=== PATIENT | female | born 1980 | race Caucasian/White ===

== ENCOUNTER 2024-12-29 00:51 | Inpatient (IN) | payer OTHER, SELFPAY ==
[2024-12-29] VITALS (18 sets, daily range): BP systolic 134–175; BP diastolic 71–92; PULSE 50–108; RESP 16–22; TEMP 36.2–37.1; O2SAT 95–99; BMI 41.5
--- NOTE | 2024-12-29 | PATH_ITS ---
[facility] Accession Number: [id number] No. of containers..01 Tissue . 01 Material submitted: . gallbladder - GALLBLADDER . 01 Diagnosis: GALBLADDER, CHOLECYSTECTOMY: Cholelithiasis with chronic active cholecystitis. No evidence of neoplasm. MRV 01/10/2025 1419 Local . 01 Electronically signed: . Lino Pollock MD, PhD, Pathologist NPI- [id number] . 01 Gross description: . Received in formalin labeled with two patient identifiers and gallbladder, and consists of a 7.1 x 3.5 x 2.1 cm unopened gallbladder. The serosal surface is alvarado-purple, diffusely hyperemic with a marked amount of fibrous adhesions. There si a 0.5 x 0.3 cm clipped probe patent cystic duct which is further inked blue. There is also a 1.0 cm in greatest dimension red-alvarado encapsulated lymph node adjacent to the cystic duct. The lymph node is trisected to show a alvarado-red, homogeneous cut surface. The specimen is opened to show a diffusely thickened, white, fibrotic gallbladder wall that ranges from 0.1 to 0.6 cm in thickness. The mucosa is alvarado, coarsely granular, and diffusely effaced. No polyps or masses are appreciated. The lumen of the gallbladder is filled with brown to green sludge like material. In addition, there is a 0.9 cm in greatest dimension, green, bosselated, ovoid gallstones. Audio Experience Expert gallstones are submitted as follows: A1: Cystic duct, lymph node trisected, and licensing representative gallbladder. A2: Audio Experience Expert gallbladder. ([id number]) /LIYA 01/03/2025 0632 Local . 01 Pathologist provided ICD-10: K80.60 . 01 CPT . 582483 Specimen Comment: A courtesy copy of this report has been sent to [facility] Pathology Performed at: [address] [address], [place], [place] [id number] MD Kalen Canas MD Phone: [phone]
--- NOTE | 2024-12-29 01:04 | DI.RAD.S_ITS ---
PROCEDURE: XR CHEST 1V INDICATIONS: throacic pain TECHNIQUE: One view of the chest was acquired. COMPARISON: None. FINDINGS: Surgical changes and devices: None. Lungs and pleura: Lungs are clear. No pleural effusions or pneumothorax. Mediastinum: Mediastinal contours appear normal. Heart size is normal. Bones and chest wall: No suspicious bony lesions. Overlying soft tissues appear unremarkable. IMPRESSION: No acute cardiopulmonary abnormality is seen. Approved by: Floresita Gomez M.D.,Ph.D. on 12/29/2024 at 2:09
[2024-12-29 01:22] LABS: Add Manual Diff / Slide Review NO; Hematocrit 40.6 % (36-46); Hemoglobin 13.8 g/dL (12.0-16.0); Lymphocytes Absolute Auto 1200 /uL (1100-4500); Mean Corpuscular HGB Conc 33.9 % (30-36); Mean Corpuscular Hemoglobin 29.3 PG (26-34); Mean Corpuscular Volume 86.5 fL (80-100); Platelet Count 331 X10^3/uL (150-400)
[2024-12-29] MEDS: SODIUM CHLORIDE 0.9% 1,000 ML 1000 ML IV (01:23)
[2024-12-29] MEDS: KETOROLAC 30 MG/ML VIAL 15 MG IV (01:24)
[2024-12-29] MEDS: ONDANSETRON 4 MG/2 ML INJ IV (01:24)
[2024-12-29 01:31] LABS: Alanine Aminotransferase 88 IU/L (<35); Albumin 4.7 g/dL (3.5-5.0); Albumin Globulin Ratio 1.3 (1.0-2.8); Alkaline Phosphatase 145 U/L (38-126); Blood Urea Nitrogen 11 mg/dL (7-17); Calcium 9.5 mg/dL (8.4-10.2); Carbon Dioxide 25 mmol/L (22-32); Chloride 104 mmol/L (98-107); Estimated Glomerular Filt Rate > 60 mL/min (>60); Globulin 3.7 g/dL (1.7-4.1); Glucose 183 mg/dL (70-99); HEMOLYSIS < 15 (0-50); Lipase 114 U/L (23-300); Magnesium 1.9 mg/dL (1.6-2.3); Potassium 4.2 mmol/L (3.4-5.1); Sodium 140 mmol/L (137-145); Total Protein 8.4 g/dL (6.3-8.2)
[2024-12-29 01:43] LABS: Troponin I < 0.012 ng/mL (0.01-0.034)
--- NOTE | 2024-12-29 02:06 | EKG_ITS ---
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
--- OUTSIDE RECORDS SUMMARY | 2024-12-29 04:07 | XMS_ITS | Encounter Summary ---
Author Organization [facility] Address [address] [place] [address] Care Team Providers Care Outside Repairer Special Name Role Phone Pcp, None Selected Primary Care Provider Unavail able Reason for Referral * MRI/CAT/PET Scan (Emergency) - Closed Specialty Diagnoses / Procedures Referred By Contac t Referred To Contact Radiology Diagnoses Thoracic back pain, unspecified back pain laterality, unspecified chronicity Procedures CT ABDOMEN PELVIS WITH CONTRAST Denisa Bhakta MD [address] [place] [address] Phone: tel: fax: [facility] [address] [place] [address] Phone: tel: Referral ID Status Reason Start Date Expiration Date V isits Requested Visits Authorized [id number] Closed Specialty Services Required 12/29/2024 02/09/2025 1 1 [facility] Reason for Visit * MRI/CAT/PET Scan (Emergency) - Closed Specialty Diagnoses / Procedures Referred By Contac t Referred To Contact Radiology Diagnoses Thoracic back pain, unspecified back pain laterality, unspecified chronicity Procedures CT ABDOMEN PELVIS WITH CONTRAST Denisa Bhakta MD [address] [place] [address] Phone: tel: fax: [facility] [address] [place] [address] Phone: tel: Referral ID Status Reason Start Date Expiration Date V isits Requested Visits Authorized [id number] Closed Specialty Services Required 12/29/2024 02/09/2025 1 1 Encounter Details Date Type Department Care Team (Latest Contact Info) Description 12/29/2024 4:07 AM PST - 12/29/2024 11:59 PM PST Hospital Encounter [facility] [address] [place] [id number] Denisa Bhakta MD [address] [place] [address] Thoracic back pain, unspecified back pain laterality, unspecified chronicity Discharge Disposition: Home/Self Care Social History Tobacco Use Types Packs/Day Years Used Date Smoking Tobacco: Never Assessed Comments Unknown Sex and Gender Information Value Date Recorded Sex Assigned at Not on file Legal Sex Female 3:27 AM PST Gender Identity Not on file Sexual Orientation Not on file documented as of this encounter Plan of Treatment Upcoming Encounters Date Type Department Care Team (Late st Contact Info) Description 01/13/2025 Hospital Encounter [facility] [address] [place] [address] Homero Mcmahon MD [address] [address] Scheduled Procedures Name Priority Associated Diagnoses Date/Ti me DIAGNOSTIC ENDOSCOPIC RETROG RADE CHOLANGIOPANCREATOGRAPHY WITH COLLECTION OF SPECIMEN BY WASHING History of biliary duct stent placement documented as of this encounter Procedures Procedure Name Priority Date/Time Associated Diagnosis Comments CT ABDOMEN PELVIS WITH CONTRAST STAT 12/29/2024 4:17 AM PST Thoracic back pain, unspecified back pain laterality, unspecified chronicity documented in this encounter Results * CT ABDOMEN PELVIS WITH CONTRAST (12/29/2024 4:17 AM PST) Anatomical Region Laterality Modality Body N/A Computed Tomogra phy 12/29/2024 8:40 AM PST Narrative 12/29/2024 8:40 [place]. [address] PATIENT NAME: NAZ MENDOZA : 1980 GENDER: F EXAM DATE: 12/29/2024 4:07 ORDERED FROM: [facility] ORDERING PHYSICIAN: DENISA BHAKTA CC: -- - - - CONTRAST: 100 mL isovue 300 READING STATION ID: [id number] mGy: 43.95 PROCEDURE: CT ABDOMEN PELVIS WITH CONTRAST INDICATIONS: Abdominal pain, acute, nonlocalized TECHNIQUE: After the administration of intravenous contrast, axial sections were acquired from the lung bases to the pubic symphysis. Coronal and sagittal reformats were performed. For radiation dose reduction, the following was used: automated exposure control, adjustment of mA and/or kV according to patient size. COMPARISON: None. FINDINGS: Image quality: Diagnostic. Lower Chest: No significant findings. ABDOMEN: Liver: No solid mass. Gallbladder: Gallbladder wall thickening with pericholecystic edema. Probable gallstone in the neck. Biliary ducts: Mild intrahepatic biliary dilation. Common bile duct measures 8 mm. Pancreas: No ductal dilation. Spleen: Size is within normal limits. Adrenal Glands: No adrenal nodules. Kidneys and Ureters: No hydronephrosis. No solid mass. No complex renal cystic lesion which requires follow up. Stomach and Bowel: Normal colonic caliber, without significant wall thickening. Fecal debris within the small bowel. Normal appendix. Peritoneum: No abnormal intraperitoneal fluid. No free air. Ventral Wall: No significant ventral hernia. Abdominal Nodes: No retroperitoneal or mesenteric adenopathy by size criteria. Vessels: Aorta and inferior vena cava are normal in size. PELVIS: Pelvic Organs: Unremarkable. Bladder: No bladder wall thickening, accounting for underdistention. Pelvic Nodes: No enlarged lymph nodes. Miscellaneous: No inguinal hernias are seen. Bones: No aggressive osseous abnormality. IMPRESSION: Suspected acute cholecystitis. Possible choledocholithiasis given intrahepatic and extrahepatic biliary dilation. Consider confirmation with MRCP. Agree with preliminary report. Reviewed by: Ranjith Gimenez M.D. on 12/29/2024 at 8:38 Approved by: Ranjith Gimenez M.D. on 12/29/2024 at 8:40 Procedure Note Ranjith Gimenez MD - 12/29/2024 [place]. [address] PATIENT NAME: NAZ MENDOZA : 1980 GENDER: F EXAM DATE: 12/29/2024 4:07 [facility]ICIAN: DENISA BHAKTA CC: -- - - - CONTRAST: 100 mL isovue 300 READING STATION ID: [id number] mGy: 43.95 PROCEDURE: CT ABDOMEN PELVIS WITH CONTRAST INDICATIONS: Abdominal pain, acute, nonlocalized TECHNIQUE: After the administration of intravenous contrast, axial sections wereacquired from the lung bases to the pubic symphysis. Coronal and sagittalreformats were performed. For radiation dose reduction, the following wasused: automated exposure control, adjustment of mA and/or kV according topatient size. COMPARISON: None. FINDINGS: Image quality: Diagnostic. Lower Chest: No significant findings. ABDOMEN: Liver: No solid mass. Gallbladder: Gallbladder wall thickening with pericholecystic edema.Probable gallstone in the neck. Biliary ducts: Mild intrahepatic biliary dilation. Common bile ductmeasures 8 mm. Pancreas: No ductal dilation. Spleen: Size is within normal limits. Adrenal Glands: No adrenal nodules. Kidneys and Ureters: No hydronephrosis. No solid mass. No complex renalcystic lesion which requires follow up. Stomach and Bowel: Normal colonic caliber, without significant wallthickening. Fecal debris within the small bowel. Normal appendix. Peritoneum: No abnormal intraperitoneal fluid. No free air. Ventral Wall: No significant ventral hernia. Abdominal Nodes: No retroperitoneal or mesenteric adenopathy by sizecriteria. Vessels: Aorta and inferior vena cava are normal in size. PELVIS: Pelvic Organs: Unremarkable. Bladder: No bladder wall thickening, accounting for underdistention. Pelvic Nodes: No enlarged lymph nodes. Miscellaneous: No inguinal hernias are seen. Bones: No aggressive osseous abnormality. IMPRESSION: Suspected acute cholecystitis. Possible choledocholithiasis givenintrahepatic and extrahepatic biliary dilation. Consider confirmationwith MRCP. Agree with preliminary report. Reviewed by: Ranjith Gimenez M.D. on 12/29/2024 at 8:38 Approved by: Ranjith Gimenez M.D. on 12/29/2024 at 8:40 Denisa Bhakta MD [facility] CT PROCEDURES Final Result documented in this encounter Visit Diagnoses Diagnosis Thoracic back pain, unspecified back pain laterality, unspecified chronicity documented in this encounter Administered Medications Inactive Administered Medications - up to 3 most recent administrations Medication Order MAR Action Action Date Dose Rate Site iopamidoL (ISOVUE-300) 300 mg iodine /mL (61 %) solution 100 mL 100 mL, intravenous, Once in imaging, First dose on Fri12/29/24 at 0430, For 1 dose Given 12/29/2024 4:15 AM PST 100 mL documented in this encounter Care Teams Outside Repairer Special Relationship Specialty Start Date End Date Pcp, None Selected PCP - General 12/29/24 documented as of this encounter
--- NOTE | 2024-12-29 04:17 | ED.GENADULT ---
HPI - General Adult General Chief complaint: Abdominal Pain Stated complaint: Back Pain, Abdominal Pain, N/V Time Seen by Provider: 12/29/24 00:57 Source: patient and family Mode of arrival: Wheelchair History of Present Illness HPI narrative: 44-year-old woman with no identified significant medical history comes in complaining of back pain. Apparently the pain has been in her upper thoracic area last week she had seen chiropractor with x-rays done. She had some slight improvement but returns today complaining of severe pain in her ?back?. The pain areas of pain seemed to involve the mid thoracic area down to the upper lumbar area. Bilateral flank pain, epigastric and mid abdominal pain. She states the pain is so severe that she can not actually stand up fully, she has been having nausea and dry heaving secondary to the pain for the last 24 hours. She does not describe chest pain, palpitations, fevers or chills. Related Data Allergies Allergy/AdvReac Type Severity Reaction Status Date / Time Sulfa (Sulfonamide Allergy Unknown Verified 12/29/24 00:58 Antibiotics) Review of Systems Review of Systems Narrative: Pertinent positive and negative findings as per HPI Patient History Social History Smoking Status: Former smoker Smoking Status: Former smoker Exam Initial Vital Signs Initial Vital Signs: Vital Signs Temperature 97.5 F L 12/29/24 00:58 Pulse Rate 62 12/29/24 00:58 Respiratory Rate 19 12/29/24 00:58 Blood Pressure 149/92 H 12/29/24 00:58 Pulse Oximetry 97 12/29/24 00:58 Oxygen Delivery Method Room Air 12/29/24 00:58 General: In significant pain, unable to straighten completely because of epigastrium/back pain HEENT: Moist mucous membranes, normal sclera with reactive pupils, Respiratory: Lungs are clear to auscultation, no wheezing no rales no rhonchi. Full and symmetrical air movement Cardiac: Tachycardic but regular. No murmurs are appreciated Abdomen: Soft, no rebound or guarding. She is tender in the periumbilical to epigastrium and tenderness down much of her spine including midline from mid thorax to upper lumbar area. Skin: Pale, diaphoretic Neurologic: Grossly neurologically intact with no obvious asymmetries or abnormalities Extremities: No trauma, well perfused Psych: Cooperative, appropriate insight and affect Course Orders Ordered: ED Orders 12/29/24 01:03 CT abdomen pelvis w con Stat 12/29/24 01:04 XR chest 1V Stat EKG-12 Lead Stat 12/29/24 01:10 Complete Blood Count AUTO DIFF Stat Comprehensive Metabolic Panel Stat Lipase Stat Magnesium Stat Troponin I Stat 12/29/24 04:57 Urine Microscopic Stat Hydromorphone HCl (Hydromorphone Hcl 0.5 Mg/0.5 Ml Syringe) 0.5 mg IV Q15MIN PRN PRN Reason: Pain, Last Admin: 12/29/24 05:46 Dose: 0.5 mg Documented By: Admin: 12/29/24 04:53 Dose: 0.5 mg Documented By: Admin: 12/29/24 02:41 Dose: 0.5 mg Documented By: Admin: 12/29/24 01:24 Dose: 0.5 mg Documented By: Discontinued Medications Sodium Chloride (Normal Saline 0.9%) 1,000 mls @ 1,000 mls/hr IV BOLUS ONE Stop: 12/29/24 02:01 Last Infusion: 12/29/24 02:34 Dose: Infused Documented By: Admin: 12/29/24 01:23 Dose: 1,000 mls/hr Documented By: Ketorolac Tromethamine (Ketorolac 30 Mg/Ml Vial) 15 mg IV NOW ONE Stop: 12/29/24 01:03 Last Admin: 12/29/24 01:24 Dose: 15 mg Documented By: Ondansetron HCl (Ondansetron 4 Mg/2 Ml Inj) 4 mg IV NOW ONE Stop: 12/29/24 01:03 Last Admin: 12/29/24 01:24 Dose: 4 mg Documented By: Vital Signs Vital signs: Vital Signs - 8 hr 12/29/24 00:58 12/29/24 02:08 12/29/24 02:09 Temperature 97.5 F L Pulse Rate 62 54 L Respiratory Rate 19 Blood Pressure 149/92 H 172/77 H Pulse Oximetry 97 99 Oxygen Delivery Method Room Air 12/29/24 02:09 12/29/24 04:58 12/29/24 05:00 Temperature Pulse Rate 57 L 66 79 Respiratory Rate Blood Pressure Pulse Oximetry 98 98 98 Oxygen Delivery Method Room Air 12/29/24 05:01 12/29/24 05:01 12/29/24 05:30 Temperature Pulse Rate 83 50 L Respiratory Rate Blood Pressure 148/80 H Pulse Oximetry 99 96 Oxygen Delivery Method 12/29/24 05:31 12/29/24 05:31 Temperature Pulse Rate 68 Respiratory Rate Blood Pressure 145/71 H Pulse Oximetry 96 Oxygen Delivery Method Medical Decision Making Lab Data 12/29/24 01:10 12/29/24 01:10 Labs: Lab Results 12/29/24 12/29/24 Range/Units 01:10 04:57 WBC 12.6 H (4.5-11.0) X10^3/uL RBC 4.69 (4.0-5.2) X10^6/uL Hgb 13.8 (12.0-16.0) g/dL Hct 40.6 (36-46) % MCV 86.5 (80-100) fL MCH 29.3 (26-34) PG MCHC 33.9 (30-36) % RDW 12.5 (11.6-14.8) % Plt Count 331 (150-400) X10^3/uL Neut % (Auto) 85.3 H (50-75) % Lymph % (Auto) 9.8 L (25-40) % [place] % (Auto) 3.3 (3-14) % Eos % (Auto) 0.4 L (2-4) % Baso % (Auto) 1.2 (0-2) % Neut # (Auto) 43531 H (0409-3650) /uL Lymph # (Auto) 1200 (2943-6427) /uL [place] # (Auto) 400 (0-900) /uL Eos # (Auto) 100 (0-450) /uL Baso # (Auto) 100 (0-100) /uL Sodium 140 (137-145) mmol/L Potassium 4.2 (3.4-5.1) mmol/L Chloride 104 (98-107) mmol/L Carbon Dioxide 25 (22-32) mmol/L BUN 11 (7-17) mg/dL Creatinine 0.84 (0.52-1.04) mg/dL Estimated GFR > 60 (>60) mL/min BUN/Creatinine Ratio 13.1 (6-22) Glucose 183 H (70-99) mg/dL Calcium 9.5 (8.4-10.2) mg/dL Magnesium 1.9 (1.6-2.3) mg/dL Total Bilirubin 1.0 (0.2-1.3) mg/dL AST 144 H (14-36) IU/L ALT 88 H (<35) IU/L Alkaline Phosphatase 145 H (38-126) U/L Troponin I < 0.012 (0.01-0.034) ng/mL Total Protein 8.4 H (6.3-8.2) g/dL Albumin 4.7 (3.5-5.0) g/dL Globulin 3.7 (1.7-4.1) g/dL Albumin/Globulin Ratio 1.3 (1.0-2.8) Lipase 114 (23-300) U/L Urine RBC 0-1/hpf (0-5/HPF) Urine WBC None seen (0-5/HPF) Ur Squamous Epith Cells 0-1 /hpf (0-5/HPF) Urine Bacteria None seen (None) Ur Culture Indicated? Cult not indicated Vol Urine Centrifuged 10ml (spun) Urine Dip Bedside Urine Glucose Negative Bedside Urine Bilirubin - Negative Bedside Urine Ketone - Negative Urine Specific Switzer 1.010 Bedside Urine Occult Blood + Bedside Urine pH 8.0 Bedside Urine Protein - Negative Bedside Urine Urobilinogen - Negative Bedside Urine Nitrite - Negative Bedside Urine Leukocytes - Negative Esterase Point of care testing: Urine Dip Bedside Urine Glucose Negative Bedside Urine Bilirubin - Negative Bedside Urine Ketone - Negative Urine Specific Switzer 1.010 Bedside Urine Occult Blood + Bedside Urine pH 8.0 Bedside Urine Protein - Negative Bedside Urine Urobilinogen - Negative Bedside Urine Nitrite - Negative Bedside Urine Leukocytes - Negative Esterase [facility] Narrative Medical decision making narrative: CC: Abdominal/back pain worsening over the last 2 weeks Data collected from: patient Differential considered: Pancreatitis, gastritis, perforated duodenal ulcer, gallbladder disease, compression fracture, bowel obstruction, intra-abdominal abscess Exam documented above, pertinent findings include: Patient is in obvious pain that is somewhat difficult to localize on her physical exam, she has difficulty standing up due to the upper abdominal pain that she describes his back pain, she does not have an acute surgical abdomen Lab Test results independently reviewed as above. Pertinent findings: CBC shows mild leukocytosis at 12.6 with left shift and no anemia Chemistries are reassuring Liver enzymes are elevated with ALT at 88, AST at 1:44 a.m. alk-phos at 1:45 a.m., bilirubin is normal Troponin is undetectable Lipase is normal Independently reviewed EKG: Sinus rhythm with sinus arrhythmia. Rate of 64 no acute ischemic changes Imaging studies independently reviewed: Chest x-ray is unremarkable CT scanner is not available at [facility] this evening, patient is transported via BLS ambulance to [facility] for CT scan of the abdomen and pelvis: CT impression is acute cholecystitis with mild intrahepatic biliary ductal dilatation, mild dilatation of the cystic duct Consultations: Care is reviewed with Dr. Nuñez general surgery. He will plan on intraoperative cholangiogram. Your bridging orders are entered, Treatments: Fluid, Toradol, Zofran, Dilaudid Discussion: Otherwise healthy 44-year-old woman with 2 weeks of back pain than in retrospect is actually right upper quadrant abdominal pain with CT scan showing a gallbladder wall thickened with the edema and pericholecystic fluid all consistent with the acute cholecystitis. There was no signs of sepsis. Findings reviewed with the patient. Her pain is much better controlled with Dilaudid, she has responded nicely to fluids. We will add ceftriaxone and Flagyl and we will plan on admitting her for cholecystectomy later today. Discharge Plan Departure Patient Disposition: Admitted as Observation Clinical Impression: Acute cholecystitis Admit Date/Time: 12/29/24 05:53 Admit Provider: Liu Nuñez
[2024-12-29 05:23] LABS: Culture Indicated Urine Cult Not Indicated
[2024-12-29] MEDS: cefTRIAXone 2,000 MG in SODIUM CHLORIDE 0.9% 100 ML 200 MG IV (05:59)
[2024-12-29] MEDS: metroNIDAZOLE 500 MG/100 ML PIGGYBACK 100 MG IV ×2 (06:38→15:08)
--- NOTE | 2024-12-29 06:46 | PM.HP.IH.1 ---
History of Present Illness History of Present Illness Date Patient Seen: 12/29/24 Time Patient Seen: 06:46 Chief complaint: Back Pain, Abdominal Pain, N/V Narrative: 44yo F admitted through ED with acute cholecystitis. H/O back pain, chiropractor visits. Pain became severe, n/v. CT done at [facility] demonstrating acute cholecystitis with wall thickening, pericholecystic edema and dilated bile ducts. LFTs elevated. Admitted for [facility] choley with IOCG today. 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 [facility] Social History Smoking Status: Former smoker Meds Home Medications and Allergies Allergies Allergy/AdvReac Type Severity Reaction Status Date / Time Sulfa (Sulfonamide Allergy Unknown Verified 12/29/24 00:58 Antibiotics) Exam Vital Signs (past 8 hours): - 12/29/24 00:58 12/29/24 02:08 12/29/24 02:09 Temperature 97.5 F L Pulse Rate 62 54 L Respiratory Rate 19 Blood Pressure 149/92 H 172/77 H Pulse Oximetry 97 99 Oxygen Delivery Method Room Air 12/29/24 02:09 12/29/24 04:58 12/29/24 05:00 Temperature Pulse Rate 57 L 66 79 Respiratory Rate Blood Pressure Pulse Oximetry 98 98 98 Oxygen Delivery Method Room Air 12/29/24 05:01 12/29/24 05:01 12/29/24 05:30 Temperature Pulse Rate 83 50 L Respiratory Rate Blood Pressure 148/80 H Pulse Oximetry 99 96 Oxygen Delivery Method 12/29/24 05:31 12/29/24 05:31 Temperature Pulse Rate 68 Respiratory Rate Blood Pressure 145/71 H Pulse Oximetry 96 Oxygen Delivery Method Oxygen Delivery Method Room Air Narrative Exam Narrative: Const General: healthy appearing, comfortable and no acute distress Orientation: alert and oriented x3 HENMT Ears: hearing grossly normal bilaterally Eyes Visual Edge: normal visual edge by confrontation Conjunctivae: conjunctivae normal Sclera: sclerae normal EOM: EOM intact bilaterally Resp Effort & Inspection: normal respiratory effort and able to speak in complete sentences Cardio Rate: regular rate GI Palpation: soft, +RUQ pain Extrem General: no pedal edema and no calf tenderness Objective Labs 12/29/24 01:10 12/29/24 01:10 Labs: Laboratory Results - last 24 hr 12/29/24 12/29/24 01:10 04:57 WBC 12.6 H RBC 4.69 Hgb 13.8 Hct 40.6 MCV 86.5 MCH 29.3 MCHC 33.9 RDW 12.5 Plt Count 331 Neut % (Auto) 85.3 H Lymph % (Auto) 9.8 L [place] % (Auto) 3.3 Eos % (Auto) 0.4 L Baso % (Auto) 1.2 Neut # (Auto) 10506 H Lymph # (Auto) 1200 [place] # (Auto) 400 Eos # (Auto) 100 Baso # (Auto) 100 Sodium 140 Potassium 4.2 Chloride 104 Carbon Dioxide 25 BUN 11 Creatinine 0.84 Estimated GFR > 60 BUN/Creatinine Ratio 13.1 Glucose 183 H Calcium 9.5 Magnesium 1.9 Total Bilirubin 1.0 AST 144 H ALT 88 H Alkaline Phosphatase 145 H Troponin I < 0.012 Total Protein 8.4 H Albumin 4.7 Globulin 3.7 Albumin/Globulin Ratio 1.3 Lipase 114 Urine RBC 0-1/hpf Urine WBC None seen Ur Squamous Epith Cells 0-1 /hpf Urine Bacteria None seen Ur Culture Indicated? Cult not indicated Vol Urine Centrifuged 10ml (spun) Assessment & Plan Assessment and plan (1) Acute cholecystitis: Status: Acute Plan Plan lap choley with IOCG. The risks, benefits and options regarding the procedure were explained to the patient in detail. Risk discussion included but not limited to: open incision, bile duct injury, bile leak, abscess, drain, retained stone. The patient was encouraged to ask questions and they were answered to their satisfaction. The patient understands and is agreeable to proceed. Time-Based Coding :: [TOTAL MINUTES] spent with patient and on the chart (including review of chart, obtaining history, exam, reviewing outside data, placing orders, documenting exam and treatment plan, and counseling patient) on [DATE]. 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
[2024-12-29] MEDS: LACTATED RINGERS 1,000 ML 125 ML IV ×2 (07:00→18:54)
[2024-12-29] MEDS: HEPARIN 5,000 UNIT/ML VIAL 5000 UNIT SUBCUT (08:44)
--- NOTE | 2024-12-29 10:52 | PC.NURSE ---
Pt arrived to floor at 0730 A/O, w/ abdominal pain 11/19. Pt oriented to room & call system. SBA to BR. Med w/ IVP Dilaudid w/ good results. LR infusing at 125cc/hr via pump as per orders w/o incidence. Call light w/in reach, pt calls appropriately for needs. Plan: Surgery this afternoon
[2024-12-29] MEDS: FAMOTIDINE 20 MG/2 ML VIAL IV (15:08)
[2024-12-29] MEDS: SCOPOLAMINE 1 PATCH TOP ×2 (15:08→21:32)
[2024-12-29] MEDS: LACTATED RINGERS 1,000 ML 42 ML IV (15:10)
[2024-12-29] MEDS: HYDROmorphone 2 MG/ML SYRINGE 0.5 MG IV (20:24)
[2024-12-29] MEDS: ACETAMINOPHEN IV 1,000 MG/100 ML VIAL 400 MG IV (20:59)
--- NOTE | 2024-12-29 21:26 | SUR.HOLD ---
Order for replacement scop patch due to place of placement and Zorina Request that patch be placed behind ear. See order for stat Dilaudid given by Jaye AJ.
[2024-12-29] MEDS: BUPivacaine 0.25% W/ EPI (PF) 30 ML VIAL 60 ML INJ (23:11)
[2024-12-30] VITALS (10 sets, daily range): BP systolic 122–146; BP diastolic 60–93; PULSE 53–79; RESP 16–19; TEMP 36.6–36.8; O2SAT 92–98
--- NOTE | 2024-12-30 | DI.RAD.S_ITS ---
PROCEDURE: XR CHOLANGIOGRAM OPERATIVE INDICATIONS: Cholangiogram COMPARISON: None. FINDINGS and IMPRESSION: Single intraoperative fluoroscopic image demonstrates injected contrast in the biliary tree. No extravasation of contrast or filling defects visualized. Please see separately dictated operative report for full details. Approved by: Floresita Gomez M.D.,Ph.D. on 12/30/2024 at 1:00
[2024-12-30] MEDS: BUPivacaine 0.25% W/ EPI (PF) 30 ML VIAL 60 ML INJ (00:13)
[2024-12-30] MEDS: GLUCAGON,HUMAN RECOMBINANT 1 MG/ML VIAL IV (00:14)
[2024-12-30] MEDS: ONDANSETRON 4 MG/2 ML INJ IV (00:39)
--- NOTE | 2024-12-30 00:41 | PM.OP.1 ---
Operative Date/Time/Diagnoses Date of procedure: 12/30/24 Time of procedure: 00:41 Pre-op diagnosis: Acute cholecystitis, dilated common bile duct Post-op diagnosis: same (choledocholithiasis) Procedure & Clinicians Procedure: Laparoscopic cholecystectomy with intraoperative cholangiogram Same procedure(s) as scheduled: Yes Indications: 44yo F presents to ED with acute cholecystitis, dilated bile duct, elevated LFTs. Surgeon: Liu Nuñez Assisted?: No Anesthesia Type: General Operative Notes Findings: Severe acute cholecystitis, extensive omental adhesions to gallbladder, extremely thickened gallbladder wall, gallbladder full of pus, required aspiration of 60cc of pus to be able to grasp gallbladder, cholangiogram demonstrated dilated bile duct with filling defect consistent with stone, obstructing, no flow of contrast past stone. Closure Type: primary Specimen(s): other (gallbladder) Applied: none Estimated Blood Loss (mL): 30 Blood products transfused: none Procedure in detail: After informed consent and satisfactory general endotracheal anesthesia, the abdomen was prepped and draped in the usual sterile manner.? The patient received appropriate preoperative antibiotics and DVT prophylaxis.? Surgical time-out was performed with all team members in agreement.? The pneumoperitoneum was established under direct vision using the Casarez direct trocar cutdown technique.? An 0 Vicryl [id number]-[id number] suture was placed on the fascia.? The 10 mm 30 degree lens was inserted and no trauma secondary to the trocar insertion was noted.? We performed bilateral laparoscopic TAP blocks using 25 cc of 0.25% Marcaine with epinephrine.? The additional 10 cc of local was used in the skin and subcutaneous tissues at the incision sites for a total of 60 cc of local.? The patient was placed in reverse Trendelenburg, nxfri-[id number]-ih position. The gallbladder was severely inflamed. There were extensive omental adhesions to the gallbladder with dense adhesions that took extra time to dissect off the gallbladder. The gallbladder could not be grasped. I aspirated 60cc of thick purulence from the gallbladder to aid in grasping. The fundus of the gallbladder was grasped and retracted over the liver.? The infundibulum was retracted laterally for proper exposure of the cystic duct and artery. the lower gallbladder and area around the cystic duct was characterized by dense adhesions. This took a prolonged period of careful dissection with blunt and hook cautery. At one point, I was able to identify the cystic artery and this was doubly clipped and divided. The lymph node had to be mobilized medially with hook cautery to help skeletonize the cystic duct. The cystic duct was thickened. Everything had acute on top of severe chronic inflammation. I was able to enter the cystic duct by opening the distal gallbladder. The cystic duct was shortened so I did not have room to place a clip next to the gallbladder. I was able to feed a yellow ureteral catheter through the Garcia clamp and saline irrigation returned pus from the common bile duct. We were able to achieve a cholangiogram which demonstrated dilated common bile duct with a filling defect. We gave 1mg of glucagon per anesthesia, waited a few minutes for circulation time and then flushed the bile duct with copious amounts of saline in an effort to flush the stone without success. The completion cholangiogram demonstrated persistent filling defect. She will need ERCP. I then removed the cholangoigram catheter and used large gold hemolock clips to control the thickened cystic duct. The adhesions between the gallbladder and the liver were divided with hook cautery.? This plane was characterized by necrotic liver that required additional cautery for hemostasis. The gallbladder was placed into an endo-pouch and removed.The gallbladder was so thickened, we had to enlarge the incision just to remove it from the peritoneal cavity. The gallbladder bed and clips were inspected and no bleeding or bile drainage was noted.? I left a 15Fr Jesse channel drain and secured this to the skin with 2-O Nylon suture. The drain was coursed into the gallbladder bed. She is at risk for bile leaks, abscess and cystic duct stump leak due to common bile duct obstruction. The trocars were removed and there was no bleeding noted at the trocar sites.? The 0 Vicryl wejith-oo-ebyna suture was tied. I placed additional O-PDS sutures until there were no palpable fascial defects.? The skin incisions were closed using 4-0 Monocryl in a subcuticular manner.? A drain dressing was applied to the drain exit site. Dermabond glue was applied as a final dressing.? The estimated blood loss was minimal.? The instrument sponge and needle counts were all correct x2.? The patient tolerated the procedure well and was extubated in the operating room and transported to the recovery area in stable condition. This required more than an hour greater than the typical time for cholecystectomy. This case involved multiple challenges that required more time and technical difficulties. This meets criteria for difficulty modifier. Complications: none Post-operative Condition: stable Disposition: PACU Plan for aftercare: PACU then floor She will need ERCP tomorrow
[2024-12-30] MEDS: metroNIDAZOLE 500 MG/100 ML PIGGYBACK 100 MG IV ×3 (05:09→20:28)
[2024-12-30] MEDS: cefTRIAXone 2,000 MG in SODIUM CHLORIDE 0.9% 100 ML 200 MG IV (06:39)
--- NOTE | 2024-12-30 07:03 | PM.PN.IH.1 ---
Subjective Subjective Date Patient Seen: 12/30/24 Time Patient Seen: 07:04 Interval history: no n/v afebrile Exam Vital Signs (past 8 hours): - 12/30/24 00:34 12/30/24 00:35 12/30/24 00:40 Temperature 98.2 F Pulse Rate 79 70 61 Respiratory Rate 16 19 16 Blood Pressure 146/71 H 132/63 131/60 Pulse Oximetry 95 92 95 Oxygen Delivery Method Room Air Room Air Room Air 12/30/24 00:45 12/30/24 00:50 12/30/24 00:55 Temperature Pulse Rate 70 61 61 Respiratory Rate 18 19 17 Blood Pressure 135/71 129/66 129/72 Pulse Oximetry 94 98 95 Oxygen Delivery Method Room Air Room Air Room Air 12/30/24 01:10 12/30/24 01:40 Temperature Pulse Rate 56 L Respiratory Rate 16 Blood Pressure 132/93 H Pulse Oximetry 96 Oxygen Delivery Method Room Air Nasal Cannula Oxygen Delivery Method Nasal Cannula Narrative Exam Narrative: ABD: incisions CDI, tenderness appropriate for postop, no bile in drain Objective Labs 12/29/24 01:10 12/29/24 01:10 Labs: Laboratory Results - last 24 hr 12/29/24 12:01 POC Whole Bld Glucose 99 PFSH Social History household members: spouse Smoking Status: Former smoker Assessment & Plan Assessment and plan (1) Acute cholecystitis: Status: Acute Plan POD#1 lap choley/gram Severe acute and chronic cholecystitis, gallbladder full of pus, severe inflammation +cholangiogram, CBD stone, will need ERCP today, will try [place] NPO until after ERCP Time-Based Coding :: [TOTAL MINUTES] spent with patient and on the chart (including review of chart, obtaining history, exam, reviewing outside data, placing orders, documenting exam and treatment plan, and counseling patient) on [DATE]. PROFEE Final Inspector Paper Document charge(s): Yes Charge Codes Subsequent inpatient/observation care: 74250
[2024-12-30 08:29] LABS: Add Manual Diff / Slide Review NO; Hematocrit 34.9 % (36-46); Hemoglobin 11.8 g/dL (12.0-16.0); Lymphocytes Absolute Auto 700 /uL (1100-4500); Mean Corpuscular HGB Conc 33.8 % (30-36); Mean Corpuscular Hemoglobin 29.5 PG (26-34); Mean Corpuscular Volume 87.1 fL (80-100); Platelet Count 279 X10^3/uL (150-400)
[2024-12-30 08:46] LABS: Alanine Aminotransferase 382 IU/L (<35); Albumin 3.9 g/dL (3.5-5.0); Albumin Globulin Ratio 1.2 (1.0-2.8); Alkaline Phosphatase 198 U/L (38-126); Globulin 3.3 g/dL (1.7-4.1); HEMOLYSIS < 15 (0-50); Total Protein 7.2 g/dL (6.3-8.2)
[2024-12-30] MEDS: HEPARIN 5,000 UNIT/ML VIAL 5000 UNIT SUBCUT ×2 (09:05→20:28)
--- NOTE | 2024-12-30 09:11 | CM.DANOTE ---
Initial DCP Assessment Note. Review EMR and PT Interview. Met with patient at bedside to discuss discharge needs.PT is alert x 4 sitting up in chair. No acute distress. Independent. Lives with spouse. Payor:?? [facility] PCP: ?Provider, Kwame RICHARD Summary & Plan:?44 y/o female arrived to ED via POV c/o abd pain. Admitted OBS. Dx. Acute Cholecystitis. Plan: Surgical consult. ERCP. Discharge home with spouse when improved. Discharge Planning/Care Management CM Discharge Assessment Start: 12/29/24 06:50 Freq: Status: Active Protocol: Document 12/30/24 09:09 (Rec: 12/30/24 09:11 [id number]) Discharge Planning Assessment Assigned Discharge Thea Perez RN CM Electric Switch Repairer Provider Provider, Kwame RICHARD Insurance Advance Directives? No History Provided By Patient Has Patient been No admitted in last 30 days? Prior Living House Arrangements Household Members spouse Independent with ADL Yes 's Is patient alert and Yes oriented? DME Already Rented / Other Owned Comment CPAP Discharge Plan Home Referrals Initiated None needed Review Status In Process Please Provide Date 12/30/24 Initial DC Assessment Was Performed Next Review Type Continued Stay Review
--- OUTSIDE RECORDS SUMMARY | 2024-12-30 13:58 | XMS_ITS | Encounter Summary ---
Author Organization [facility] Address [address] [place] [id number] Care Team Providers Care Solderer Assembler Name Role Phone Pcp, None Selected Primary Care Provider Unavail able Reason for Visit * Auth/Cert Specialty Diagnoses / Procedures Referred By Asya sims Referred To Contact Diagnoses Choledocholithiasis Choledocholithiasis [K80.50] Procedures MS ERCP DX COLLECTION SPECIMEN BRUSHING/WASHING DIAGNOSTIC ENDOSCOPIC RETROGRADE CHOLANGIOPANCREATOGRAPHY WITH COLLECTION OF SPECIMEN BY WASHING Referral ID Status Reason Start Date Expiration Date Visits Re quested Visits Authorized [id number] 1 1 Encounter Details Date Type Department Care Team (Latest Contact Info) Description 12/30/2024 1:58 PM PST - 12/30/2024 5:39 PM PST Hospital Encounter [facility] Endoscopy [address] [place] [address] Homero Mcmahon MD [address] [address] Discharge Disposition: Other Acute Care Hospital Social History Tobacco Use Types Packs/Day Years Used Date Smoking Tobacco: Unknown Tobacco Cessation:Counseling Given: Not Answered Comments No Sex and Gender Information Value Date Recorded Sex Assigned at Not on file Legal Sex Female 3:27 AM PST Gender Identity Not on file Sexual Orientation Not on file documented as of this encounter Last Filed Vital Signs Vital Sign Reading Time Taken Comments Blood Pressure 154/81 12/30/2024 5:20 PM PST Pulse 63 12/30/2024 5:25 PM PST Temperature 36 C (96.8 F) 12/30/2024 3:40 PM PST Respiratory Rate 16 12/30/2024 5:25 PM PST Oxygen Saturation 98% 12/30/2024 5:25 PM PST Inhaled Oxygen Concentration - - Weight 109 kg (240 lb) 12/30/2024 2:09 PM PST Height 165.1 cm (5' 5) 12/30/2024 2:09 PM PST Body Mass Index 39.94 12/30/2024 2:09 PM PST documented in this encounter Functional Status * Question Answer Date of Assessment Author History of Falling 0 12/30/2024 2:05 PM Norma Ricketts RN Secondary Diagnosis 0 12/30/2024 2:05 PM Norma Morris RN Ambulatory Aids 0 12/30/2024 2:05 PM Norma Mijares RN Intravenous Therapy/Heparin/Saline Lock 20 12/30/2024 2:05 PM Norma Ricketts RN Gait/Transferring 0 12/30/2024 2:05 PM Norma Ricketts RN Mental Status 0 12/30/2024 2:05 PM Norma Caraballo RN Cruz Fall Risk Score 20 12/30/2024 2:05 PM Norma Ricketts RN * Question Answer Date of Assessment Author Sensory Perceptions 4 12/30/2024 2:00 PM Norma Morris RN Moisture 4 12/30/2024 2:00 PM Norma Casper RN Activity 4 12/30/2024 2:00 PM Norma Casper RN Mobility 4 12/30/2024 2:00 PM Norma Casper RN Nutrition 3 12/30/2024 2:00 PM Norma Casper RN Friction and Shear 3 12/30/2024 2:00 PM Norma Ricketts RN Frandy Scale Score 22 12/30/2024 2:00 PM Norma Ricketts RN * Modified Mervin Question Answer Date of Assessment Author Activity 2 12/30/2024 5:15 PM Lino Rider RN Respiration 2 12/30/2024 5:15 PM PST Lino Gonzales RN Circulation 1 12/30/2024 4:30 PM Lino Rider RN Consciousness 2 12/30/2024 5:15 PM PST Lino Bray RN Oxygen Saturation 2 12/30/2024 5:15 PM PST Lino Tarango RN Modified Mervin Score 8 12/30/2024 4:30 PM PST Lino Tarango RN documented as of this encounter Mental Status * Question Answer Entry Date Author Level of Consciousness Responds to Voice 12/30/2024 4: 30 PM PST Lino Tarango RN documented in this encounter Consult Notes * Homero Mcmahon MD - 12/30/2024 2:47 PM PST Gastroenterology Consultation Reason for consult: Subjective HPI: Viky Leo is a 44 y.o. female who no significant past medical history who presented to an outside hospital with complaint of back pain. Pain was located in the upper thoracic area. She had seen her chiropractor with for this and had x-rays done there was slight improvement after seeing herchiropractor but presented to the emergency room with severe pain in her back. She also had bilateral flank pain epigastric pain and mid abdominal pain. She also had been having nausea and dry heaving. She denied any fevers chills or sweats. Labs in the emergency room yesterday revealed a white blood cell count of 12.6, hemoglobin 13.8, hematocrit of 40.6, platelet count of 331. Electrolytes reve aled a serum sodium of 140, potassium 4.2, chloride of 104, CO2 25, BUN of 11 and BUN of 0.8. Her LFTs were a total bili of 1, AST of 144, ALT of 88, alkaline phosphatase of 145. Troponin I was less than 0.012. Her urine dip was negative for bilirubin and glucose ketones, occult blood was positive but was negative for proteins nitrites and leukocytes. CT scan done showed acute cholecystitis with mild intrahepatic biliary ductal dilation and mild dilation of the cystic duct. Patient subsequentlyunderwent laparoscopic cholecystectomy with intraoperative cholangiogram. IntraOp cholangiogram waspositive for what the surgeon described as a bile duct stone in the distal CBD. I was contacted by general surgery this morning from [facility] requesting patient undergo ERCPfor choledocholithiasis. Labs today revealed a total bilirubin of 3.1, unconjugated of 0.3. AST of 318, ALT of 382, alkalinephosphatase of 198. CBC revealed a white blood cell count of 7.2, hemoglobin 11.8, hematocrit 34.9,MCV of 87.1, platelet count of 279. Upon my interview with the patient she is complaining of some ongoing epigastric pain along with some mild nausea. Denies any fevers chills or sweats. Problem List[1] History reviewed. No pertinent past medical history. Past Surgical History: Procedure Laterality Date CHOLECYSTECTOMY History reviewed. No pertinent family history. Social History Socioeconomic History Marital status: Spouse name: Not on file Number of children: Not on file Years of education: Not on file Highest education level: Not on file Occupational History Not on file Tobacco Use Smoking status: Unknown Smokeless tobacco: Not on file Substance and Sexual Activity Alcohol use: Not on file Drug use: Not on file Sexual activity: Not on file Other Topics Concern Not on file Social History Narrative Not on file Social Drivers of Health Financial Resource Strain: Not on file Food Insecurity: Not on file Transportation Needs: Not on file Physical Activity: Not on file Stress: Not on file Social Connections: Not on file Intimate Partner Violence: Not on file Housing Stability: Not on file Current Medications[2] Allergies[3] Review of Systems The following portions of the patient's history were reviewed and updated as appropriate: allergies, current medications, past family history, past medical history, past social history, past surgicalhistory, and problem list. Review of Systems Pertinent items are noted in HPI.. Objective BP 134/69 Pulse (!) 55 Comment: baseline for pt Temp 36.5 ??C (97.7 ??F) (Temporal) Resp 19 Ht 1.651 m Wt 109 kg LMP 12/27/2024 SpO2 95% BMI 39.94 kg/m?? @[email or web address]@ Body mass index is 39.94 kg/m??. Physical Exam General appearance: alert, appears stated age, and cooperative Eyes: conjunctivae/corneas clear. PERRL, EOM's intact. Fundi benign. Lungs: clear to auscultation bilaterally Heart: regular rate and rhythm, S1, S2 normal, no murmur, click, rub or gallop Abdomen: Soft, tender to palpation at surgical sites. Extremities: extremities normal, warm and well-perfused; no cyanosis, clubbing, or edema Lab Review @RESULTRCNT@ No components found for: CBC] No components found for: CMP] No results found for any previous visit. ] Assessment/Plan 44-year-old woman presenting with acute cholecystitis who underwent laparoscopic cholecystectomy with intraoperative cholangiogram findings consistent with choledocholithiasis.. Plan for ERCP Indomethacin suppositories prior to start of the procedure Risks of potential pancreatitis, bleeding, perforation, infection with ERCP discussed with patient and she was agreeable to proceed. Homero Mcmahon MD 12/30/2024 2:47 PM [1] Patient Active Problem List Diagnosis Choledocholithiasis [2] Current Facility-Administered Medications: fentaNYL (SUBLIMAZE) injection 25-50 mcg, 25-50 mcg, intravenous, See admin instructions, Homero Mcmahon MD indomethacin (INDOCIN) 50 mg suppository 100 mg, 100 mg, rectal, Once, Homero Mcmahon MD sodium chloride (NS) 0.9 % infusion 1,000 mL, 1,000 mL, intravenous, Continuous, Homero Mcmahon MD sodium chloride 0.9 % flush 10 mL, 10 mL, intravenous, PRN, Homero Mcmahon MD [3] Allergies Allergen Reactions Sulfa (Sulfonamide Antibiotics) Unknown documented in this encounter OR Notes * Perioperative Nursing Note - Lino Tarango RN - 12/30/2024 5:43 PM PST Report to MADAI Alexandre at [phone]. Report to ambulance crew at bedside. * Perioperative Nursing Note - Norma Farmer RN - 12/30/2024 3:09 PM PST ERCP: Clever[place] used for sphincterotomy 9-12 balloon used for sweep- swapped out with 8*4 dilator balloon during procedure * Perioperative Nursing Note - Norma Farmer RN - 12/30/2024 3:09 PM PST Anesthesia monitoring V/S, sedation, airway during procedure. * Op Note - Homero Mcmahon MD - 12/30/2024 3:01 PM PST ERCP Procedure: ERCP with biliary sphincterotomy, biliary sphincteroplasty and biliary stent placement Pre-operative Diagnosis: Choledocholithiasis Post-operative Diagnosis: Choledocholithiasis and cholangitis Staff: Forensic Psychiatrist: Kalyan Telles RT perinatal director: Elvia Gaffney GI Nurse: Norma Farmer RN Anesthesia: General Pre-Procedure Physical: The following portions of the patient's history were reviewed and updated as appropriate: allergies, current medications, past family history, past medical history, past social history, past surgicalhistory, and problem list. BP 134/69 Pulse (!) 55 Comment: baseline for pt Temp 36.5 ??C (97.7 ??F) (Temporal) Resp 19 Ht 1.651 m Wt 109 kg LMP 12/27/2024 SpO2 95% BMI 39.94 kg/m?? Airway: normal Heart: normal S1 and S2 Lungs: clear Abdomen: Soft, epigastric tenderness and tender to palpation over incision sites. Mental Status: awake and alert; oriented to person, place, and time ASA Class: 2 Procedure Details Informed consent was obtained for the procedure, including sedation. Risks of pancreatitis, perforation, hemorrhage, adverse drug reaction and aspiration were discussed. The patient was placed in thestandard ERCP prone position. Based on the pre-procedure assessment, including review of the patient's medical history, medications, allergies, and review of systems, she had been deemed to be an appropriate candidate for general anesthesia. Please see anesthesia notes for details regarding generalanesthesia. The patient was monitored continuously with ECG tracing, pulse oximetry, blood pressuremonitoring, and direct observations. The side-viewing therapeutic duodenoscope was inserted into the mouth and advanced under direct vision to second portion of the duodenum. The ampulla appeared normal. Pus was seen draining from the ampulla. Using an [place]alanche clever cut tome with a 0.025 wire the bile duct was selectively cannulated.Initial cholangiogram revealed an approximately 8 mm CBD with 8 mm filling defect in the distal portion. Upstream to the filling defect the bile duct and common hepatic duct were dilated. There was filling of the right hepatic left hepatic and intrahepatic ducts which appeared normal. Next a small sphincterotomy was performed. Sphincterotomy was limited secondary to a horizontal fold superior to the ampulla. Sphincterotome was then exchanged out for a 9 to 12 mm standard biliary stone extraction balloon. The biliary tree was swept starting at the most distal portion and resistance was encountered. The standard biliary stone extraction balloon was then exchanged out for a 8 mm x 4 cm HurriCaine balloon. Over wire guidance sphincterotomy was dilated with HurriCaine balloon. Following dilation the biliary stone extraction balloon was then reintroduced and the biliary tree was swept and fragmented stone debris was extracted along with a moderate amount of sludge. Pus was also seen flowingthe ampulla with sweeps. On final sweep starting at the bifurcation of the right hepatic and left hepatic duct the balloon traversed the sphincterotomy without resistance. Next I elected to place a 10 Maldivian by 7 cm plastic stent with 1 leading rosa and 1 trailing rosa over wire guidance. Final fluoroscopic images demonstrated the stent to be in adequate position. Rapid drainage of contrast was appreciated. Bile was seen flowing from the stent. Limited exam of the esophagus, stomach and duodenum were unremarkable. Indomethacin suppositories were administered prior to start of the procedure. Levaquin 500 milligrams IV was given during the procedure. Homero Mcmahon MD Medications: Preop and Intraop Administered Meds from 12/29/2024 1539 to 12/30/2024 1539 Date/Time Order Dose Route Action Action by Comments 12/30/2024 2995 PST indomethacin (INDOCIN) 50 mg suppository 100 mg 100 mg rectal Given Norma Farmer RN -- Blood Product Administration: No Estimated blood loss-less than 5 mL ERCP findings: -Choledocholithiasis - Cholangitis -Status post ERCP with biliary sphincterotomy, biliary sphincteroplasty and biliary stent placement Specimens: * No specimens in log * Grafts/Implants: Implant Name Type Inv. Item Serial No. Chef & Owner Lot No. [id number] No. Used Action STENT, BILIARY 10*7 - [id number] - [id number] STENT, BILIARY 10*7 [id number] [employer] [id number] N/A 1 Implanted Complications: None; patient tolerated the procedure well. Disposition: PACU - hemodynamically stable. Condition: stable Attending Attestation: I performed the procedure. Impression: - Choledocholithiasis - Cholangitis - Status post biliary sphincterotomy, biliary sphincteroplasty and biliary stent placement Recommendations: -Follow LFTs - Recommend IV antibiotics - Repeat ERCP in 8 to 12 weeks for biliary stent removal -Avoid NSAIDs and anticoagulants for 72 hours. - Further plans as per surgical team at [facility]. Homero Mcmahon MD, MD 12/30/2024 * Perioperative Nursing Note - Norma Farmer RN - 12/30/2024 2:03 PM PST Pt brought to department by [facility] team, RN received report at bedside. documented in this encounter Plan of Treatment Upcoming Encounters Date Type Department Care Team (Late st Contact Info) Description 01/13/2025 Hospital Encounter [facility] Endoscopy [address] [place] [phone] Homero Mcmahon MD [address] [address] Scheduled Procedures Name Priority Associated Diagnoses Date/Ti me DIAGNOSTIC ENDOSCOPIC RETROG RADE CHOLANGIOPANCREATOGRAPHY WITH COLLECTION OF SPECIMEN BY WASHING History of biliary duct stent placement documented as of this encounter Procedures Procedure Name Priority Date/Time Associated Diagnosis Comments XR ERCP BILIARY AND PANCREATIC Routine 12/30/2024 3:42 PM PST documented in this encounter Results * XR ERCP BILIARY AND PANCREATIC (12/30/2024 3:42 PM PST) Narrative SYSTEMGENERATED, DOCUMENTATION - 12/30/2024 3:43 PM PST This exam has been auto-finalized. Please refer to Clinical Note. Homero Mcmahon MD RIS [facility] XR PROCED URES Final Result documented in this encounter Visit Diagnoses Diagnosis Choledocholithiasis- Primary Calculus of bile duct without mention of cholecystitis or obstruction documented in this encounter Admitting Diagnoses Diagnosis Choledocholithiasis Calculus of bile duct without mention of cholecystitis or obstruction documented in this encounter Administered Medications Inactive Administered Medications - up to 3 most recent administrations Medication Order MAR Action Action Date Dose Rate Site fentaNYL (SUBLIMAZE) injection 25-50 mcg 25-50 mcg, intravenous, See admin instructions, Starting on Leslie 12/30/24 at 1402, For 1 day, Pre-op, As directed by provider. fentaNYL (SUBLIMAZE) injection 25-50 mcg 25-50 mcg, intravenous, Every 5 min PRN, for mild to severe pain (1-10) to a maximum dose of 200 mcg. Start with 25 mcg; if not effective, many increase dose to 50 mcg. Call Anesthesia if pain not relieved after maximum doses given., Starting on Leslie 12/30/24 at 1551, PACU (only), Administer IV push. If more than one narcotic ordered, provider MUST establish priority. PRIORITY #1 If first priority pain medication ineffective, advance to next priority pain medication. May alternate with previous priority medication. Given 12/30/2024 5:21 PM PST 25 mcg Given 12/30/2024 4:06 PM PST 25 mcg flumazeniL (ROMAZICON) injection 0.2 mg 0.2 mg, intravenous, Once as needed, Sedation Reversal, Starting on Leslie 12/30/24 at 1551, For 1 day, To be available for administration with physician present. indomethacin (INDOCIN) 50 mg suppository 100 mg 100 mg, rectal, Once, On Leslie 12/30/24 at 1415, For 1 dose, Pre-op, To be administered by endoscopy nurse immediately post ERCP Given 12/30/2024 2:56 PM PST 100 mg levofloxacin in D5W (LEVAQUIN) IVPB (premix) 500 mg 500 mg, intravenous, at 100 mL/hr, Administer over 60 Minutes, Once, On Leslie 12/30/24 at 1600, For 1 dose, PACU (only), premix bag, Indication: Gastrointestinal New Bag 12/30/2024 4:26 PM PST 500 mg 100 mL/hr sodium chloride (NS) 0.9 % infusion 1,000 mL 1,000 mL, intravenous, at 25 mL/hr, Continuous, Starting on Lselie 12/30/24 at 1415, Pre-op, or rate as directed by provider sodium chloride 0.9 % flush 10 mL 10 mL, intravenous, As needed, line care, Starting on Leslie 12/30/24 at 1402, Pre-op documented in this encounter Active and Recently Administered Medications Times are shown in PST. Scheduled Medication Order 12/28/2024 12/29/2024 12/30/2024 fentaNYL (SUBLIMAZE) injection 25-50 mcg 25-50 mcg, intravenous, See admin instructions, Starting on Leslie 12/30/24 at 1402, For 1 day, Pre-op, As directed by provider. indomethacin (INDOCIN) 50 mg suppository 100 mg (COMPLETED) 100 mg, rectal, Once, On Leslie 12/30/24 at 1415, For 1 dose, Pre-op, To be administered by endoscopy nurse immediately post ERCP 1456 (Given - Provid er: Norma Farmer RN) levofloxacin in D5W (LEVAQUIN) IVPB (premix) 500 mg (COMPLETED) 500 mg, intravenous, at 100 mL/hr, Administer over 60 Minutes, Once, On Leslie 12/30/24 at 1600, For 1 dose, PACU (only), premix bag, Indication: Gastrointestinal 1626 (New Bag - Prov ider: Tatiana Bender RN)1726 (Due: Stopped - Provider: Tatiana Bender RN) Continuous Medication Order 12/28/2024 12/29/2024 12/30/2024 lactated Ringer's infusion 120 mL/hr, intravenous, Continuous, Starting on Leslie 12/30/24 at 1600, For 8 hours, PACU (only) 1600 (Canceled Entry - Provider: Kim Discharge Provider, Automatic - Comment: Automatically canceled at discontinue of medication order) sodium chloride (NS) 0.9 % infusion 1,000 mL 1,000 mL, intravenous, at 25 mL/hr, Continuous, Starting on Leslie 12/30/24 at 1415, Pre-op, or rate as directed by provider 1415 (Canceled Entry - Provider: [facility] Discharge Provider, Automatic - Comment: Automatically canceled at discontinue of medication order) PRN Medication Order 12/28/2024 12/29/2024 12/30/2024 atropine injection (abboject) 0.4 mg 0.4 mg, intravenous, As needed, bradycardia, for bradycardia; every 1 minute for heart rate less than 40 OR less than 50 with HYPOtension, chest pain, or decreased level of consciousness. Call Anesthesia, Starting on Leslie 12/30/24 at 1551, PACU (only) dexamethasone (PF) (DECADRON) injection 4 mg 4 mg, intravenous, Once as needed, for nausea or vomiting if not already administered in the OR., Starting on Leslie 12/30/24 at 1551, For 1 dose, PACU (only), Administer IV push. If more than one antiemetic ordered, provider MUST establish priority. PRIORITY #2 diphenhydrAMINE (BENADRYL) injection 12.5 mg 12.5 mg, intravenous, Every 30 min PRN, itching, to a maximum of 100 mg., Starting on Leslie 12/30/24 at 1551, Administer slow IV push. ePHEDrine sulfate injection solution 25 mg 25 mg, intramuscular, Once as needed, for nausea or vomiting, Starting on Leslie 12/30/24 at 1551, For 1 dose, PACU (only), If more than one antiemetic ordered, provider MUST establish priority (1-5) PRIORITY # 5 ePHEDrine sulfate injection solution 5 mg 5 mg, intravenous, As needed, for systolic blood pressure below 90; May give 5 mg every 2 minutes PRN. May repeat to a maximum dose of 50 mg., Starting on Leslie 12/30/24 at 1551, PACU (only), Administer IV push. Must prioritize (LR bolus - phenylephrine - ephedrine) if more than one drug is indicated for hypotension. PRIORITY # fentaNYL (SUBLIMAZE) injection 25-50 mcg 25-50 mcg, intravenous, Every 5 min PRN, for mild to severe pain (1-10) to a maximum dose of 200 mcg. Start with 25 mcg; if not effective, many increase dose to 50 mcg. Call Anesthesia if pain not relieved after maximum doses given., Starting on Leslie 12/30/24 at 1551, PACU (only), Administer IV push. If more than one narcotic ordered, provider MUST establish priority. PRIORITY #1 If first priority pain medication ineffective, advance to next priority pain medication. May alternate with previous priority medication. 1606 (Given - Provid er: Tatiana Bender RN)1721 (Given - Provider: Lino Tarango RN) flumazeniL (ROMAZICON) injection 0.2 mg 0.2 mg, intravenous, Once as needed, Sedation Reversal, Starting on Leslie 12/30/24 at 1551, For 1 day, To be available for administration with physician present. HYDROmorphone (DILAUDID) injection 0.2-0.5 mg 0.2-0.5 mg, intravenous, Every 10 min PRN, for moderate to severe pain (6-10) to a maximum dose of 2.5 mg., Starting on Leslie 12/30/24 at 1551, PACU (only), Start with 0.2 mg; if not effective, may increase dose to 0.5 mg. Call Anesthesia if pain not relieved after maximum doses given. Administer IV push. If more than one narcotic ordered, provider MUST establish priority. PRIORITY # 2 If first priority pain medication ineffective, advance to next priority pain medication. May alternate with previous priority medication. hydrOXYzine (VISTARIL) injection 25 mg 25 mg, intramuscular, Once as needed, itching, for nausea or vomiting, Starting on Leslie 12/30/24 at 1551, For 1 dose, PACU (only), May repeat ONCE in 10 minutes as needed for nausea or vomiting. If more than one antiemetic ordered, provider MUST establish priority. PRIORITY #4 labetaloL (NORMODYNE) injection 5 mg 5 mg, intravenous, at 999 mL/hr, Every 10 min PRN, high blood pressure, for systolic blood pressure greater than 180 or diastolic blood pressure greater than 90 AND if heart rate greater than 60; to maximum of 20 mg, Starting on Leslie 12/30/24 at 1551, PACU (only) lactated ringers IV bolus from bag 250 mL 250 mL, intravenous, As needed, for systolic blood pressure less than 90; may repeat x2, Starting on Leslie 12/30/24 at 1551, PACU (only), Must prioritize (LR bolus - phenylephrine - ephedrine) if more than one drug is indicated for hypotension. PRIORITY # meperidine (PF) (DEMEROL) injection 12.5 mg 12.5 mg, intravenous, Every 5 min PRN, shivering, to a maximum of 50 mg PROVIDED respiratory rate is at least 10 breaths/minute and patient is awake or arousable to verbal stimuli, Starting on Leslie 12/30/24 at 1551, For 48 hours, PACU (only), Administer IV push. metoclopramide (REGLAN) injection 10 mg 10 mg, intravenous, Once as needed, nausea, vomiting, Starting on Leslie 12/30/24 at 1551, For 1 dose, PACU (only), Administer IV push. May repeat x1 after 10 minutes. If more than one antiemetic ordered, provider MUST establish priority. PRIORITY #3 naloxone (NARCAN) injection 0.4 mg 0.4 mg, intravenous, As needed, opioid reversal, respiratory depression, Starting on Leslie 12/30/24 at 1551, PACU (only) ondansetron (ZOFRAN) injection 4-8 mg 4-8 mg, intravenous, Every 4 hours PRN, nausea, vomiting, Starting on Leslie 12/30/24 at 1551, For 2 doses, PACU (only), Administer IV push. Start with 4 mg; if not effective, may increase to 8 mg. If more than one antiemetic ordered, provider MUST establish priority. PRIORITY #1 phenylephrine in sodium chloride 0.9 % 1 mg/10 mL (100 mcg/mL) injection 50 mcg 50 mcg, intravenous, Administer over 2 Minutes, As needed, hypotension, for systolic blood pressure below 90, to a total of 500 mcg, Starting on Leslie 12/30/24 at 1551, PACU (only), Administer IV push. CAUTION: Extravasation risk. Check IV patency BEFORE administering. MUST DILUTE: Dilute 0.1 mL of 10 mg/mL with 9 mL saline; give 1 mL (100 mcg) over 2 minutes. If systolic BP remains below 90, call Anesthesia. Must prioritize (LR bolus - phenylephrine - ephedrine) if more than one drug is indicated for hypotension. PRIORITY # sodium chloride 0.9 % flush 10 mL 10 mL, intravenous, As needed, line care, Starting on Leslie 12/30/24 at 1402, Pre-op documented in this encounter Care Teams Solderer Assembler Relationship Specialty Start Date End Date Pcp, None Selected PCP - General 12/29/24 documented as of this encounter
--- NOTE | 2024-12-30 14:20 | PC.NURSE ---
Patient transported by EMS via stretcher to [facility] at 1315, report called to MADAI Garcia.
--- OUTSIDE RECORDS SUMMARY | 2024-12-30 14:45 | XMS_ITS | Encounter Summary ---
Author Organization [facility] Address [address] [place] [address] Care Team Providers Care Sample Checker Name Role Phone Pcp, None Selected Primary Care Provider Unavail able Reason for Visit * Auth/Cert Specialty Diagnoses / Procedures Referred By Asya sims Referred To Contact Diagnoses Choledocholithiasis Choledocholithiasis [K80.50] Procedures [place] ERCP DX COLLECTION SPECIMEN BRUSHING/WASHING DIAGNOSTIC ENDOSCOPIC RETROGRADE CHOLANGIOPANCREATOGRAPHY WITH COLLECTION OF SPECIMEN BY WASHING Referral ID Status Reason Start Date Expiration Date Visits Re quested Visits Authorized [id number] 1 1 Encounter Details Date Type Department Care Team (Latest Contact Info) Description 12/30/2024 2:45 PM PST - 12/30/2024 3:37 PM PST Surgery [facility] [address] [place] [address] Homero Mcmahon MD [address] [address] ENDOSCOPIC RETROGRADE CHOLANGIOPANCREATOGRAPHY WITH BALLOON DILATATION OF PANCREATIC DUCT AND SPHINCTERECTOMY [65552 (CPT )] Social History Tobacco Use Types Packs/Day Years [...] Sign Reading Time Taken Comments Blood Pressure 134/69 12/30/2024 2:09 PM PST Pulse 55 12/30/2024 2:09 PM PST baseline for pt Temperature 36.5 C (97.7 F) 12/30/2024 2:09 PM PST Respiratory Rate 19 12/30/2024 2:09 PM PST Oxygen Saturation 95% 12/30/2024 2:0 9 PM PST Inhaled Oxygen Concentration - - Weight 109 kg (240 lb) 12/30/2024 2:09 PM PST Height 165.1 cm (5' 5) 12/30/2024 2:09 PM PST Body Mass Index 39.94 12/30/2024 2:09 PM PST documented in this encounter Functional Status documented as of this encounter Consult Notes * Homero Mcmahon [...] of 40.6, platelet count of 331. Electrolytes revea led a serum sodium of 140, potassium 4.2, [...] mild dilation of the cystic duct. Patient subsequently underwent laparoscopic cholecystectomy with intraoperative cholangiogram. IntraOp cholangiogram was positive for what the surgeon described as a bile duct stone in the distal CBD. I was contacted by general surgery this morning from [facility] requesting patient undergo ERCPfor choledocholithiasis. [...] PM PST Report to MADAI Alexandre at [phone]. Report to ambulance crew at bedside. * [...] Choledocholithiasis Post-operative Diagnosis: Choledocholithiasis and cholangitis Staff: Diagnostic Technician: Kalyan Telles RT cardiac specialist: Elvia Gaffney GI Nurse: Norma Farmer RN [...] seen draining from the ampulla. Using an Olympus clever cut tome with a 0.025 wire [...] Next I elected to place a 10 Wallisian by 7 cm plastic stent with 1 [...] Dose Route Action Action by Comments 12/30/2024 2075 PST indomethacin (INDOCIN) 50 mg suppository 100 mg 100 mg rectal Given Norma Farmer RN -- Blood Product Administration: No Estimated blood loss-less than 5 mL ERCP findings: -Choledocholithiasis - Cholangitis -Status post ERCP with biliary sphincterotomy, biliary sphincteroplasty and biliary stent placement Specimens: * No specimens in log * Grafts/Implants: Implant Name Type Inv. Item Serial No. Video Effects Editor Lot No. [id number] No. Used Action STENT, BILIARY 10*7 - [id number] - [id number] STENT, BILIARY 10*7 [id number] [employer] [id number] N/A 1 Implanted Complications: None; patient tolerated [...] Further plans as per surgical team at [facility]. Homero Mcmahon MD, MD 12/30/2024 * Perioperative Nursing Note - Norma Farmer RN - 12/30/2024 2:03 PM PST Pt brought to department by [facility] team, RN received report at bedside. documented in this encounter Plan of Treatment Upcoming Encounters Date Type Department Care Team (Late st Contact Info) Description 01/13/2025 Hospital Encounter [facility] End[facility] [address] [place] [address] Homero Mcmahon MD [address] [phone] Scheduled Procedures Name Priority Associated [...] documented in this encounter Visit Diagnoses Diagnosis Choledocholithiasis Calculus of bile duct without mention of cholecystitis or obstruction Choledocholithiasis- Primary Calculus of bile duct without [...] PACU (only) 1600 (Canceled Entry - Provider: [facility] Discharge Provider, Automatic - Comment: Automatically canceled at discontinue of medication order) sodium chloride (NS) 0.9 % infusion 1,000 mL 1,000 mL, intravenous, at 25 mL/hr, Continuous, Starting on Leslie 12/30/24 at 1415, Pre-op, or rate as directed by provider 1415 (Canceled Entry - Provider: [facility] Discharge Provider, Automatic - Comment: Automatically canceled [...] Pre-op documented in this encounter Care Teams Sample Checker Relationship Specialty Start Date End Date Pcp, None Selected PCP - General 12/29/24 documented as of this encounter
--- OUTSIDE RECORDS SUMMARY | 2024-12-30 14:54 | XMS_ITS | Encounter Summary ---
Author Organization [facility] Address [address] [place] [address] Care Team Providers Care Director Of Premium Seat Sales Name Role Phone Pcp, None Selected Primary Care Provider Unavail able Reason for Visit * Auth/Cert Specialty Diagnoses / Procedures Referred By Asya sims Referred To Contact Diagnoses Choledocholithiasis Choledocholithiasis [K80.50] Procedures [place] ERCP DX COLLECTION SPECIMEN BRUSHING/WASHING DIAGNOSTIC ENDOSCOPIC RETROGRADE CHOLANGIOPANCREATOGRAPHY WITH COLLECTION OF SPECIMEN BY WASHING Referral ID Status Reason Start Date Expiration Date Visits Re quested Visits Authorized [id number] 1 1 Encounter Details Date Type Department Care Team (Late st Contact Info) Description 12/30/2024 2:54 PM PST Anesthesia Event [facility] Endoscopy [address] [place] [address] Dada Sanchez, DO [address] [facility] [place] [address] Anesthesia Record Procedure Summary Procedure Name Responsible Anesthesiologist Anesthesia Start Time Anesthesia Stop Time ENDOSCOPIC RETROGRADE CHOLANGIOPANCREATOGRAPHY WITH BALLOON DILATATION OF PANCREATIC DUCT AND SPHINCTERECTOMY (Abdomen) Dada Sanchez DO 12/30/24 1454 12/30/24 15 45 Events Date Time Event Comment 12/30/2024 1453 1454 An Start 1454 An Start Data 1455 In Room 1458 An Induction I attest that I have identified and re-evaluated the patient immediately before the induction of anesthesia. Relevant medical history including anesthesia, drug and allergy history, laboratory and test results, anesthesia plan and potential problems, ASA classification of risk, airway and other pertinent physical findings, NPO status, and any additional applicable information documented on the anesthesia preoperative record have been reviewed and updated as indicated. Risks, benefits and alternatives of the anesthesia plan have been discussed with the patient or their technical service representative and all questions have been answered. Anesthesia plan communicated with care team. The first vital signs recorded are pre induction. Dada Sanchez DO 1459 An Intubation 1501 Proc Start 1507 Anesthesia Ready 1533 Proc Fin 1536 An Extubation The patient wa s evaluated by the practitioner and determined to be ready for extubation as evidenced by one or more of the following: maintains O2 sat, presence of swallow/cough, follows instructions, TOF= 4/4, lifts head for > 5 sec, adequate Vt, EtCO2 appropriate. Oropharynx suctioned prior to extubation. 1537 Out of Room 1537 an stop data 1544 Handoff to RN I completed my handoff to the receiving nurse during which we: 1. Identified the patient 2. Identified the responsible provider 3. Reviewed the pertinent medical history 4. Discussed the surgical course 5. Reviewed intra-op anesthesia management and issues during anesthesia 6. Set expectations for post-procedure period 7. Allowed opportunity for questions and acknowledgement of understanding. 1545 An Stop Meds Name Total fentaNYL (SUBLIMAZE) injection 100 mcg Propofol IV Push 10mg/mL 200 mg succinylcholine chloride 100 mg/5 mL (20 mg/mL) 100 mg ondansetron (ZOFRAN) 4 mg/2 mL injection 4 mg dexamethasone (DECADRON) injection 4 mg/ mL 4 mg ketorolac (TORADOL) injection 30 mg 15 m g * Agents Name O2 N2O Air Sevoflurane Inspired Sevoflurane * Blood No blood administrations on file. Lines, Drains, and Airways Type Details Placement Removal ETT Placement Date: 12/12 ; Placement Time: 1458 (created via procedure documentation); Technique: Direct laryngoscopy; Type: ETT - single; Single Lumen Tube Size: 7 mm; Cuffed: Yes; Blade Size: 3; Location: Oral; Grade View: Grade I; Insertion Attempts: 1; Placement Verification: Auscultation, Capnometry; Removal Date: 12/30/24; Removal Time: 153512/30/24 1459 by Dada Sanchez DO 12/30/24 153 by Dada Sanchez DO documented in this encounter Social History Tobacco Use Types Packs/Day Years Used Date Smoking Tobacco: Unknown Comments No Sex and Gender Information Value Date Recorded Sex Assigned at Not on file Legal Sex Female 3:27 AM PST Gender Identity Not on file Sexual Orientation Not on file documented as of this encounter Functional Status * Question Answer [...] 0 12/30/2024 2:05 PM Norma Caraballo RN Morse Fall Risk Score 20 12/30/2024 2:05 PM [...] Date of Assessment Author Activity 2 12/30/2024 3:40 PM Tatiana Martinez, MADAI Respiration 2 12/30/2024 3:40 PM Tatiana Martinez, RN Circulation 2 12/30/2024 3:40 PM Tatiana Martinez, MADAI Consciousness 2 12/30/2024 3:40 PM PST Tatiana Pozo RN Oxygen Saturation 2 12/30/2024 3:40 PM Tatiana Martinez, MADAI Modified Mervin Score 10 12/30/2024 3:40 PM PST Tatiana Bender, MADAI documented as of this encounter OR Notes * Anesthesia Postprocedure Evaluation - Dada Sanchez DO - 12/30/2024 3:54 PM PST Patient: Viky Leo Procedure Summary Date: 12/30/24 Room / Location: [place] [address] / [facility] Anesthesia Start: 1454 Anesthesia Stop: 1545 Procedure: ENDOSCOPIC RETROGRADE CHOLANGIOPANCREATOGRAPHY WITH BALLOON DILATATION OF PANCREATIC DUCT AND SPHINCTERECTOMY (Abdomen) Diagnosis: Choledocholithiasis (Choledocholithiasis [K80.50]) Providers: Homero Mcmahon MD Responsible Provider: Dada Sanchez DO Anesthesia Type: general ASA Status: 3 Last vitals Vitals Value Taken Time BP 138/62 12/30/24 15:50 Temp 36 ??C (96.8 ??F) 12/30/24 15:40 Pulse 70 12/30/24 15:54 Resp 22 12/30/24 15:54 SpO2 94 % 12/30/24 15:54 Vitals shown include unfiled device data. Post Operative Evaluation: Patient evaluated at PACU. Patient participation: complete - patient participated Level of consciousness: awake and alert Pain Score: 4 Pain Control: adequate Airway Patency: patent Anesthetic Complications: No Cardiovascular Status: acceptable and hemodynamically stable Respiratory Status: acceptable and unassisted Postoperative Hydration: acceptable Nausea/Vomiting: none No notable events documented. * Anesthesia Procedure Notes - Dada Sanchez DO - 12/30/2024 3:10 PM PST Associated Order(s): Intubation Intubation Date/Time: 12/30/2024 2:59 PM Reason: elective Airway not difficult General Information and Staff Patient location during procedure: OR Performed by: Dada Sanchez DO Authorized by: Dada Sanchez DO Patient Condition Patient position: sniffing MILS not maintained throughout Sedation level: deep sedation Mask Ventilation Mask difficulty assessment: easy mask Final Airway Details Preoxygenated: yes Final airway type: endotracheal airway Successful airway: ETT Cuffed: yes Successful intubation technique: direct laryngoscopy Endotracheal tube insertion site: oral Blade: GlideScope Blade size: #3 ETT size (mm): 7.0 Cormack-Lehane Classification: grade I - full view of glottis Placement verified by: chest auscultation and capnometry Measured from: lips ETT to lips (cm): 22 Number of attempts at approach: 1 * Anesthesia Preprocedure Evaluation - Dada Sanchez DO - 12/30/2024 2:52 PM PST Problem List[1] Relevant Problems ANESTHESIA (-) History of anesthesia complications CARDIOVASCULAR (-) Angina pectoris PULMONARY (-) Recent URI Cholecystitis s/p lap humera yesterday at [facility] 3/4 times a week, BMI 40. PHYSICAL EXAM: Airway: Mallampati: III TM Distance: >3 FB Neck ROM: full Dental: No notable dental history Cardiovascular: Rhythm: regular Rate: normal Pulmonary: Breath sounds clear to auscultation Abdominal: Patient is positive for obesity (BMI 40). Anesthesia Plan: ASA: 3 Planned Type: general Allergies, history, nursing notes and medications reviewed. Induction: intravenous Post operative opioids intended. Specific risks discussed include but are not limited to: voice injury, sore throat, respiratory events, PARQ, perioperative CV events, drug reaction, heart problems, dental injury, nausea, awareness under anesthesia and nerve damage. Patient is in agreement with the anesthetic plan, questions answered and patient and legal guardianexpress understanding. 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 Evaluation [1] Patient Active Problem List Diagnosis Choledocholithiasis documented in this encounter Plan of Treatment Upcoming Encounters Date Type Department Care Team (Late st Contact Info) Description 01/13/2025 Hospital Encounter [facility] End[facility] [address] [place] [address] Homero Mcmahon MD [address] [address] Scheduled Procedures Name Priority Associated Diagnoses Date/Ti me DIAGNOSTIC ENDOSCOPIC RETROG RADE CHOLANGIOPANCREATOGRAPHY WITH COLLECTION OF SPECIMEN BY WASHING History of biliary duct stent placement documented as of this encounter Procedures Procedure Name Priority Date/Time Associated Diagnosis Comments HI AN ELECTIVE ENDOTRACHEAL AIRWAY Routine 12/30/2024 2:59 PM PST documented in this encounter Results * HI AN ELECTIVE ENDOTRACHEAL AIRWAY (12/30/2024 2:59 PM PST) Dada Kennedy DO - 12/30/2024 2:59 PM PST Ddaa Sanchez DO 12/30/2024 3:11 PM Intubation Date/Time: 12/30/2024 2:59 PM Reason: elective Airway not difficult General Information and Staff Patient location during procedure: OR Performed by: Dada Sanchez DO Authorized by: Dada Sanchez DO Patient Condition Patient position: sniffing MILS not maintained throughout Sedation level: deep sedation Mask Ventilation Mask difficulty assessment: easy mask Final Airway Details Preoxygenated: yes Final airway type: endotracheal airway Successful airway: ETT Cuffed: yes Successful intubation technique: direct laryngoscopy Endotracheal tube insertion site: oral Blade: GlideScope Blade size: #3 ETT size (mm): 7.0 Cormack-Lehane Classification: grade I - full view of glottis Placement verified by: chest auscultation and capnometry Measured from: lips ETT to lips (cm): 22 Number of attempts at approach: 1 us Dada Sanchez DO ANESTHESIA ORDERABLES Blanquita l Result documented in this encounter Visit Diagnoses Not on filedocumented in this encounter Administered Medications Inactive Administered Medications - up to 3 most recent administrations Medication Order MAR Action Action Date Dose Rate Site dexamethasone (DECADRON) injection intravenous, As needed, Starting on Leslie 12/30/24 at 1509, Anesthesia Intra-op Given 12/30/2024 3:09 PM PST 4 mg fentaNYL (SUBLIMAZE) injection intravenous, As needed, Starting on Leslie 12/30/24 at 1456, Anesthesia Intra-op Given 12/30/2024 2:56 PM PST 100 mcg ketorolac (TORADOL) injection intravenous, As needed, Starting on Leslie 12/30/24 at 1515, Anesthesia Intra-op Given 12/30/2024 3:15 PM PST 15 mg ondansetron (ZOFRAN) injection intravenous, As needed, Starting on Leslie 12/30/24 at 1515, Anesthesia Intra-op Given 12/30/2024 3:15 PM PST 4 mg propofol push intravenous, As needed, Starting on Leslie 12/30/24 at 1458, Anesthesia Intra-op Given 12/30/2024 2:58 PM PST 200 mg succinylcholine chloride syringe intravenous, As needed, Starting on Leslie 12/30/24 at 1458, Anesthesia Intra-op Given 12/30/2024 2:58 PM PST 100 mg documented in this encounter Care Teams Director Of Premium Seat Sales Relationship Specialty Start Date End Date Pcp, None Selected PCP - General 12/29/24 documented as of this encounter
--- NOTE | 2024-12-30 18:42 | PC.NURSE ---
Patient arrived with EMS via stretcher at 1815 this evening. Awake OX4, on RA, a little sluggish but quickly perked up to food plate and waiting in the room. She is able to ambulate and void in BR. She reports pain to abdomen 4-5/10. LR at 125ml/hr. MD Nuñez ordered continue abx, follow up LFT and lipase in a.m.
[2024-12-31] MEDS: LACTATED RINGERS 1,000 ML 125 ML IV ×2 (03:35→15:07)
[2024-12-31] MEDS: metroNIDAZOLE 500 MG/100 ML PIGGYBACK 100 MG IV ×3 (05:20→22:07)
[2024-12-31 05:33] LABS: Alanine Aminotransferase 370 IU/L (<35); Albumin 3.4 g/dL (3.5-5.0); Albumin Globulin Ratio 1.2 (1.0-2.8); Alkaline Phosphatase 211 U/L (38-126); Globulin 2.8 g/dL (1.7-4.1); HEMOLYSIS < 15 (0-50); Lipase 134 U/L (23-300); Total Protein 6.2 g/dL (6.3-8.2)
[2024-12-31] MEDS: cefTRIAXone 2,000 MG in SODIUM CHLORIDE 0.9% 100 ML 200 MG IV (06:32)
--- NOTE | 2024-12-31 07:45 | PM.PN.IH.1 ---
Subjective Subjective Date Patient Seen: 12/31/24 Time Patient Seen: 07:45 Interval history: Tolerating regular diet without n/v Exam Vital Signs (past 8 hours): Oxygen Delivery Method Nasal Cannula Narrative Exam Narrative: Const General: healthy appearing, comfortable and no acute distress Orientation: alert and oriented x3 ENT: non-icteric sclerae Resp Effort & Inspection: normal respiratory effort and able to speak in complete sentences Cardio Rate: regular rate GI Palpation: soft, drain serous without bile or purulence, tenderness appropriate for postop, incisions CDI Extrem General: no pedal edema and no calf tenderness Objective Labs 12/30/24 08:10 12/29/24 01:10 Labs: Laboratory Results - last 24 hr 12/30/24 12/31/24 08:10 04:50 WBC 7.7 RBC 4.00 Hgb 11.8 L Hct 34.9 L MCV 87.1 MCH 29.5 MCHC 33.8 RDW 12.5 Plt Count 279 Neut % (Auto) 88.0 H Lymph % (Auto) 9.0 L Hickman % (Auto) 2.3 L Eos % (Auto) 0.0 L Baso % (Auto) 0.7 Neut # (Auto) 6700 Lymph # (Auto) 700 L Hickman # (Auto) 200 Eos # (Auto) 0 Baso # (Auto) 100 Total Bilirubin 3.1 H 1.9 H Conjugated Bilirubin 1.1 H 0.2 Unconjugated Bilirubin 0.3 0.2 AST 318 H 263 H ALT 382 H 370 H Alkaline Phosphatase 198 H 211 H Total Protein 7.2 6.2 L Albumin 3.9 3.4 L Globulin 3.3 2.8 Albumin/Globulin Ratio 1.2 1.2 Lipase 134 PFSH Social History household members: spouse Smoking Status: Former smoker Assessment & Plan Assessment and plan (1) Acute cholecystitis: Status: Acute (2) Choledocholithiasis: Status: Acute Plan POD#2 lap choley POD#1 ERCP Drain non-bilious Normal lipase after ERCP Tolerating regular diet Likely home tomorrow Plan drain removal prior to discharge if no bile Time-Based Coding :: [TOTAL MINUTES] spent with patient and on the chart (including review of chart, obtaining history, exam, reviewing outside data, placing orders, documenting exam and treatment plan, and counseling patient) on [DATE]. PROFEE Hearing Aid Assembly Supervisor Document charge(s): Yes Charge Codes Subsequent inpatient/observation care: [id number]
[2024-12-31] MEDS: HEPARIN 5,000 UNIT/ML VIAL 5000 UNIT SUBCUT ×2 (08:36→20:13)
--- NOTE | 2024-12-31 11:21 | CM.DPC ---
DCP Cont. Reviewed EMR and team rounds for pt's status updates. Per Surgeon, pt is advancing diet, still has drain, and plan is d/c home tomorrow. No CM d/c needs are anticipated at this time.
--- OUTSIDE RECORDS SUMMARY | 2024-12-31 13:05 | XMS_ITS | Encounter Summary ---
Author Organization [facility] Address [address] [place] [address] Care Team Providers Care Ski Technician Name Role Phone Pcp, None Selected Primary Care Provider Unavail able Encounter Details Date Type Department Care Team (Latest Contact Info) Description 12/30/2024 Travel Social History Tobacco Use Types Packs/Day Years [...] Rider RN Respiration 2 12/30/2024 5:15 PM Lino Rider RN Circulation 1 12/30/2024 4:30 PM Lino Rider RN Consciousness 2 12/30/2024 5:15 PM PST Lino Bray RN Oxygen Saturation 2 12/30/2024 5:15 PM PST Lino Tarango RN Modified Mervin Score 8 12/30/2024 4:30 PM Lino Lee RN documented as of this encounter Mental Status * Question Answer Entry Date Author Level of Consciousness Responds to Voice 12/30/2024 4: 30 PM Lino Lee RN documented in this encounter Plan of Treatment Upcoming Encounters Date Type Department Care Team (Late st Contact Info) Description 01/13/2025 Hospital Encounter [facility] Endoscopy [address] [place] [address] Homero Mcmahon MD [address] [address] Scheduled Procedures Name Priority Associated Diagnoses Date/Ti me DIAGNOSTIC ENDOSCOPIC RETROG RADE CHOLANGIOPANCREATOGRAPHY WITH COLLECTION OF SPECIMEN BY WASHING History of biliary duct stent placement documented as of this encounter Visit Diagnoses Not on filedocumented in this encounter Care Teams Ski Technician Relationship Specialty Start Date End Date Pcp, None Selected PCP - General 12/29/24 documented as of this encounter
--- OUTSIDE RECORDS SUMMARY | 2024-12-31 13:05 | XMS_ITS | Encounter Summary ---
Author Organization [facility] Address [address] [place] [address] Care Team Providers Care Closing Agent Name Role Phone Pcp, None Selected Primary Care Provider Unavail able Encounter Details Date Type Department Care Team (Late st Contact Info) Description 12/30/2024 Orders Only [facility] [place] [facility] [address] [phone] Homero Mcmahon MD [address] [phone] History of biliary duct stent placement (Primary Dx) Social History Tobacco Use Types Packs/Day Years [...] RN Secondary Diagnosis 0 12/30/2024 2:05 PM PS T Norma Farmer RN Ambulatory Aids 0 12/30/2024 2:05 PM [...] Rider RN Consciousness 2 12/30/2024 5:15 PM Lino Gauthier RN Oxygen Saturation 2 12/30/2024 5:15 PM Lino Lee RN Modified Mervin Score 8 12/30/2024 4:30 PM Lino Lee RN documented as of this encounter Mental Status * Question Answer Entry Date Author Level of Consciousness Responds to Voice 12/30/2024 4: 30 PM Lino Lee RN documented in this encounter Plan of Treatment Upcoming Encounters Date Type Department Care Team (Late st Contact Info) Description 01/13/2025 Hospital Encounter [facility] Endoscopy [address] [place] [phone] Homero Mcmahon MD [address] [phone] Scheduled Procedures Name Priority Associated Diagnoses Date/Ti me DIAGNOSTIC ENDOSCOPIC RETROG RADE CHOLANGIOPANCREATOGRAPHY WITH COLLECTION OF SPECIMEN BY WASHING History of biliary duct stent placement documented as of this encounter Visit Diagnoses Diagnosis History of biliary duct stent placement- Primary History of biliary duct stent placement- Primary documented in this encounter Care Teams Closing Agent Relationship Specialty Start Date End Date Pcp, None Selected PCP - General 12/29/24 documented as of this encounter
--- OUTSIDE RECORDS SUMMARY | 2024-12-31 13:05 | XMS_ITS | Clinical Summary ---
Author Organization [facility] Address [address] [place] [address] Care Team Providers Care Rattlesnake Farmer Name Role Phone Pcp, None Selected Primary Care Provider Unavail able Allergies Active Allergy Reactions Criticality Noted Date Comments Sulfa (Sulfonamide Antibiotics) 12/12 Unknown Active Problems Problem Noted Date Diagnosed Date Choledocholithiasis 12/30/2024 History of biliary duct stent placement 12/31/19 25 Encounters Date Type Department Care Team Description 12/30/2024 2:54 PM PST Anesthesia Event [facility] [address] [place] [address] Dada Sanchez, 12/30/2024 2:45 PM PST - 12/30/2024 3:37 PM [facility] Surgery [facility] [address] [place] [address] Homero Mcmahon MD ENDOSCOPIC RETROGRADE CHOLANGIOPANCREATOGRAPHY WITH BALLOON DILATATION OF PANCREATIC DUCT AND SPHINCTERECTOMY [42199 (CPT )] 12/30/2024 1:58 PM PST - 12/30/2024 5:39 PM PST Hospital Encounter [facility] [address] [place] [address] Homero Mcmahon MD Discharge Disposition: Other Acute Care Hospital 12/30/2024 Orders Only [facility] [address] [address] Homero Mcmahon MD History of biliary duct stent placement (Primary Dx) 12/30/2024 Travel 12/30/2024 Orders Only [facility] [address] [address] Homero Mcmahon MD Choledocholithiasis (Primary Dx) 12/29/2024 4:07 AM PST - 12/29/2024 11:59 PM PST Hospital Encounter [facility] [address] [place] [address] Denisa Bhakta MD Thoracic back pain, unspecified back pain laterality, unspecified chronicity Discharge Disposition: Home/Self Care from Last 3 Months Social History Tobacco Use Types Packs/Day Years Used Date Smoking Tobacco: Unknown Tobacco Cessation:Counseling Given: Not Answered Comments No Sex and Gender Information Value Date Recorded Sex Assigned at Not on file Legal Sex Female 3:27 AM PST Gender Identity Not on file Sexual Orientation Not on file Last Filed Vital Signs Vital Sign Reading [...] Mass Index 39.94 12/30/2024 2:09 PM PST Plan of Treatment Upcoming Encounters Date Type Department Care Team (Late st Contact Info) Description 01/13/2025 Hospital Encounter [facility] [address] [place] [address] Homero Mcmahon MD [address] [phone] Scheduled Procedures Name Priority Associated Diagnoses Date/Ti me DIAGNOSTIC ENDOSCOPIC RETROG RADE CHOLANGIOPANCREATOGRAPHY WITH COLLECTION OF SPECIMEN BY WASHING History of biliary duct stent placement Health Maintenance Due Date Last Done Comments Breast Cancer Screening 1982 MMR Vaccines (1 of 1 - Stand yair series) 12/04/1983 Depression Screening (PHQ-2) 1994 Varicella Vaccines (1 of 2 - 13+ 2-dose series) 12/04/1995 DTaP,Tdap,and Td Vaccines (1 - Tdap) 2001 Hepatitis B Vaccines (1 of 3 - 19+ 3-dose series) 2001 HPV Vaccines (1 - 3-dose SCD M series) 2009 Cervical Cancer Screening Co mbined Topic 2012 Cervical Cancer-Pap screening 2012 HPV/Cotest 2012 COVID-19 Vaccine (1 - 2024-2 6 season) 2024 Influenza Vaccine (#1) 2024 RSV Patients Over 60 years O R qualifying ( Patients) (1 - 1-dose 75+ series) 2057 HM Pneumococcal Combined Age 0-49 Aged Out No longer eligible based on patient's age to complete this topic Hepatitis A Vaccines Aged Out No long er eligible based on patient's age to complete this topic IPV Vaccines Aged Out No longer eligi ble based on patient's age to complete this topic Medical Devices Implanted Type Area Nailhead Operator Device Identifier Shelf Expiration Date Model / Serial / Lot Stent, Biliary 10*7 - [id number] - [id number] Implanted:Qty: 1 on 12/30/2024 by Homero Mcmahon MD at [facility] N/A: Bile Duct Total Immersion 09/14/2026 [id number] / [id number] / [id number] Procedures Procedure Name Priority Date/Time Associated Diagnosis Comments XR ERCP BILIARY AND PANCREATIC Routine 12/30/2024 3:42 PM PST AK AN ELECTIVE ENDOTRACHEAL AIRWAY Routine 12/30/2024 2:[address] ABDOMEN PELVIS WITH CONTRAST STAT 12/29/2024 4:17 AM PST Thoracic back pain, unspecified back pain laterality, unspecified chronicity from Last 3 Months Results * XR ERCP BILIARY AND PANCREATIC (12/30/2024 3:42 PM PST) Narrative SYSTEMGENERATED, DOCUMENTATION - 12/30/2024 3:43 PM PST This exam has been auto-finalized. Please refer to Clinical Note. Homero Mcmahon MD [facility] XR PROCED URES Final Result * AK AN ELECTIVE ENDOTRACHEAL AIRWAY (12/30/2024 2:59 PM PST) Narrative Dada Sanchez DO - 12/30/2024 2:59 PM PST Dada Sanchez DO 12/30/2024 3:11 PM Intubation Date/Time: [...] Sanchez DO ANESTHESIA ORDERABLES Blanquita l Result * CT ABDOMEN PELVIS WITH CONTRAST (12/29/2024 4:17 AM PST) Anatomical Region Laterality Modality Body N/A Computed Tomogra phy 12/29/2024 8:40 AM PST Narrative 12/29/2024 8:40 [place]. [address] PATIENT NAME: NAZ MENDOZASterling : 1980 GENDER: F EXAM DATE: 12/29/2024 4:07 ORDERED FROM: [facility] ORDERING PHYSICIAN: DENISA BHAKTA CC: -- - [...] Procedure Note Ranjith Gimenez MD - 12/29/2024 [place]. [address] PATIENT NAME: NAZ MENDOZA : 1980 GENDER: F EXAM DATE: 12/29/2024 4:07 ORDERED FROM: [facility] ORDERING PHYSICIAN: DENISA BHAKTA CC: -- - [...] on 12/29/2024 at 8:40 Denisa Bhakta MD [facility] CT PROCEDURES Final Result from Last 3 Months Insurance Advance Directives * Full Code (Latest Code Status on File) Date Activated Date Inactivated Comments 12/30/2024 2:02 PM 12/30/2024 7:44 PM Question Answer Comments Discussed the code status with patient and/or fa shan: No Care Teams Rattlesnake Farmer Relationship Specialty Start Date End Date Pcp, None Selected PCP - General 12/29/24
--- OUTSIDE RECORDS SUMMARY | 2024-12-31 13:06 | XMS_ITS | Encounter Summary ---
Author Organization [facility] Address [address] [place] [address] Care Team Providers Care Logistics Engineering Manager Name Role Phone Pcp, None Selected Primary Care Provider Unavail able Encounter Details Date Type Department Care Team (Latest Contact Info) Description 12/30/2024 Orders Only [facility] Gastroenterology [address] [address] Homero Mcmahon MD [address] [phone] Choledocholithiasis (Primary Dx) Social History Tobacco Use Types [...] st Contact Info) Description 01/13/2025 Hospital Encounter [facility] [address] [place] [address] Homero Mcmahon MD [address] [address] Scheduled Procedures Name Priority Associated Diagnoses Date/Ti me DIAGNOSTIC ENDOSCOPIC RETROG RADE CHOLANGIOPANCREATOGRAPHY WITH COLLECTION OF SPECIMEN BY WASHING History of biliary duct stent placement documented as of this encounter Visit Diagnoses Diagnosis Choledocholithiasis- Primary Calculus of bile duct without mention of cholecystitis or obstruction documented in this encounter Care Teams Logistics Engineering Manager Relationship Specialty Start Date End Date Pcp, None Selected PCP - General 12/29/24 documented as of this encounter
--- NOTE | 2024-12-31 14:39 | PC.NURSE ---
This RN made aware of a new skin sore to patients upper inner lip by patient. Pt denies pain, and there is no discharge or redness but she reports feeling like the swelling has increased over the last day.VSS. After discussing this new development with pharmacist and Doctor Keron given ok by Dr to continue with no new orders. Patient educated to report any worsening symptoms.
--- NOTE | 2024-12-31 18:29 | PC.NURSE ---
Patient was up to hallways IND with FWW steady gate, request for pain med PRN upon returning to room. Now comfortable in bed. No change to lapsites or drainage; ROSMERY drain collecting moderate amount of output and dressing is reinforced.
[2024-12-31 19:58] VITALS: BP 151/70; PULSE 53; RESP 16; TEMP 36.6; O2SAT 97
--- NOTE | 2024-12-31 20:18 | PC.NURSE ---
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 Patient can ambulate without assistance. Zaira.Steven. notified and gave orders to stop IVF.
[2025-01-01] MEDS: cefTRIAXone 2,000 MG in SODIUM CHLORIDE 0.9% 100 ML 200 MG IV (06:03)
[2025-01-01] MEDS: metroNIDAZOLE 500 MG/100 ML PIGGYBACK 100 MG IV (06:42)
[2025-01-01] MEDS: SODIUM CHLORIDE 0.9% FLUSH 10 ML IV (08:02)
[2025-01-01] MEDS: HEPARIN 5,000 UNIT/ML VIAL 5000 UNIT SUBCUT (08:02)
[2025-01-01 09:00] VITALS: BP 130/89; PULSE 59; RESP 16; TEMP 36.4; O2SAT 97
[2025-01-01] MEDS: CALCIUM CARBONATE 500 MG TAB 1000 MG PO (09:16)
--- NOTE | 2025-01-01 11:35 | PM.PN.IH.1 ---
Subjective Subjective Date Patient Seen: 01/01/25 Time Patient Seen: 11:36 Interval history: Viky had some increase in her abdominal pain overnight but seems to be feeling better now. Exam Vital Signs (past 8 hours): - 01/01/25 09:00 Temperature 97.5 F L Pulse Rate 59 L Respiratory Rate 16 Blood Pressure 130/89 Pulse Oximetry 97 Oxygen Delivery Method Nasal Cannula Oxygen Flow Rate 0 Narrative Exam Narrative: Abdomen is soft Drain output serosanguineous Objective Labs 12/30/24 08:10 12/29/24 01:10 [facility] Social History household members: spouse Smoking Status: Former smoker Assessment & Plan Assessment and plan (1) Choledocholithiasis: Status: Acute Plan Discontinue drain Once her pain is controlled with oral agents alone she can go home, possibly this afternoon. Time-Based Coding :: [TOTAL MINUTES] spent with patient and on the chart (including review of chart, obtaining history, exam, reviewing outside data, placing orders, documenting exam and treatment plan, and counseling patient) on [DATE]. PROFEE Wire Spring Relay Adjuster Document charge(s): No
--- NOTE | 2025-01-01 15:09 | PC.NURSE ---
PCT Rachael removed PIV, pt tolerated well. Provided discharge edu on meds, activity, wound care, symptoms worsening, and follow up. All VSWNL. Pt and spouse stated all questions answered. All belongings w/pt, no belongings in drawer, pharmacy, or safe. Pt escorted via WC by DALE Cano with spouse to [facility].
== END 2025-01-01 15:00 | disposition home or self-care (01) | DRG 418 ==
LOC: ED 01:05 → AC 05:55
PROVIDERS: Admitting Provider Surgery; Emergency Provider Emergency Medicine; Referring Provider Emergency Medicine; Visit Provider Surgery
PROC: 0FT44ZZ Resection of Gallbladder, Percutaneous Endoscopic Approach (ICD-10-PCS; CPT 47563; principal; 2024-12-29 16:45)
DX: K80.47 Calculus of bile duct with acute and chronic cholecystitis with obstruction (principal); Z68.41 Body mass index [BMI] 40.0-44.9, adult; E66.01 Morbid (severe) obesity due to excess calories; K66.0 Peritoneal adhesions (postprocedural) (postinfection); Z87.891 Personal history of nicotine dependence
CPT/HCPCS: 36415; 47563; 71045; 74300; 80053; 80076; 81003; 81015; 82962; 83690; 83735; 84484; 85025; 93005; 93010; 99222; 99284; G0378; A9270; J0131; J0696; J1100; J1171; J1610; J1644; J1885; J2250; J2405; J2704; J3010; J3490; J7030; J7050; J7120; Q9967

== ENCOUNTER 2025-01-14 14:46 | Emergency (ER) | payer OTHER, SELFPAY ==
[2024-12-29 09:51] VITALS: BMI 41.5
[2025-01-14] VITALS (12 sets, daily range): BP systolic 121–151; BP diastolic 65–98; PULSE 75–127; RESP 16–18; TEMP 36.8–37.6; O2SAT 95–98; BMI 39.7
--- NOTE | 2025-01-14 15:21 | ED.ABDPAIN ---
HPI - Abdominal Pain General Chief Complaint: Abdominal Pain Stated Complaint: Fever Pain Vomiting Headache Time Seen by Provider: 01/14/25 14:50 Source: patient Mode of arrival: Ambulatory History of Present Illness HPI narrative: 44-year-old female patient with a history of chronic pain issues who underwent laparoscopic cholecystectomy on 12/29/2024 and ERCP for stone removal the day after the at [facility]. She returned here and was discharged home two days later. A day or 2 after being home she developed a severe rash on her torso which was thought secondary to the surgery prep solution. She saw her physician was put on prednisone and that rash is nearly cleared up. She developed nausea and abdominal pain 2 days ago, Friday evening which is continued. She has not vomited today but she is not eating much. Her appetite is down and she has had fevers up to 100.7. One loose stool last night in the upper abdominal pain is slightly increasing over 2 days. She was told to come to the ER for evaluation. Denies dysuria or other bladder symptoms. No upper respiratory symptoms. Related Data Allergies Allergy/AdvReac Type Severity Reaction Status Date / Time Sulfa (Sulfonamide Allergy Unknown Verified 01/12/25 14:19 Antibiotics) iodine AdvReac Severe Rash Verified 01/12/25 14:19 Review of Systems Review of Systems ROS Unobtainable: All systems reviewed & are unremarkable except as noted in HPI and below Gastrointestinal Gastrointestinal: Reports as per HPI Genitourinary Genitourinary: Reports as per HPI Patient History Social History household members: spouse Smoking Status: Never smoker Smoking Status: Never smoker Exam Narrative Exam Narrative: General: Alert and conversant. No distress. Appears well nourished and well hydrated Craniofacial: No evidence of trauma. Nontender and no swelling. Eyes: PERRLA EOMI conjunctiva clear Lungs: Clear to auscultation with good air movement. No wheezing, rales or rhonchi. No respiratory distress Cardiac: Regular rate and rhythm with no appreciable murmur or gallop Abdomen: Soft, eviv-xu-qfavhiie tenderness in the epigastrium and both upper quadrants but worse in the left upper quadrant. With no distention or masses. Normal bowel sounds. No rebound or guarding Musculoskeletal: Exam of the extremities, axial spine and ribcage reveals no deformity, bony tenderness or swelling. Range of motion intact Neuro: Alert and oriented. Cranial nerves, motor, sensory and cerebellar all grossly intact. No focal deficit Skin: Warm and normal color. No rashes Psychological: Normal affect and interaction. No evidence of delusion or psychosis. Normal mood. Initial Vital Signs Initial Vital Signs: Vital Signs Temperature 98.3 F 01/14/25 15:12 Pulse Rate 127 H 01/14/25 15:12 Respiratory Rate 18 01/14/25 15:12 Blood Pressure 151/98 H 01/14/25 15:12 Pulse Oximetry 98 01/14/25 15:12 Oxygen Delivery Method Room Air 01/14/25 15:12 Course Orders Ordered: ED Orders 01/14/25 15:25 CMP [Comprehensive Metabolic Panel] Stat Lactate (Lactic Acid) Stat Lipase Stat 01/14/25 16:06 Blood Culture Stat 01/14/25 17:48 CT abdomen pelvis w con Stat 01/14/25 21:35 Urine Microscopic Stat 01/14/25 23:01 CBC Auto Diff [Complete Blood Count AUTO DIFF] Stat Sodium Chloride (Normal Saline 0.9%) 1,000 mls @ 125 mls/hr IV CONT FRANCES Last Admin: 01/14/25 22:52 Dose: 125 mls/hr Documented By: HILL Discontinued Medications Sodium Chloride (Normal Saline 0.9%) 1,000 mls @ 1,000 mls/hr IV BOLUS ONE Stop: 01/14/25 16:19 Last Infusion: 01/14/25 16:30 Dose: Infused Documented By: Admin: 01/14/25 15:42 Dose: 1,000 mls/hr Documented By: PARISH Ketorolac Tromethamine (Ketorolac 30 Mg/Ml Vial) 30 mg IV NOW ONE Stop: 01/14/25 15:45 Last Admin: 01/14/25 15:48 Dose: 30 mg Documented By: PARISH Morphine Sulfate (Morphine 4 Mg/Ml Inj) 4 mg IV NOW ONE Stop: 01/14/25 17:00 Last Admin: 01/14/25 17:09 Dose: 4 mg Documented By: PARISH Morphine Sulfate (Morphine 4 Mg/Ml Inj) 4 mg IV NOW ONE Stop: 01/14/25 22:40 Last Admin: 01/14/25 22:49 Dose: 4 mg Documented By: HILL Ondansetron HCl (Ondansetron 4 Mg/2 Ml Inj) 4 mg IV NOW ONE Stop: 01/14/25 15:21 Last Admin: 01/14/25 15:47 Dose: 4 mg Documented By: PARISH Vital Signs Vital signs: Vital Signs - 8 hr 01/14/25 16:27 01/14/25 17:33 01/14/25 19:31 Temperature 99.6 F 99.4 F Pulse Rate 92 H 87 76 Respiratory Rate 18 16 16 Blood Pressure 145/78 H 121/66 Pulse Oximetry 98 96 98 Oxygen Delivery Method Room Air Room Air Room Air 01/14/25 20:39 Temperature Pulse Rate 83 Respiratory Rate Blood Pressure 145/67 H Pulse Oximetry 98 Oxygen Delivery Method MDM - Abdominal Pain Differential Diagnosis Differential diagnosis: Likely abdominal pain, acute appendicitis, calculus of kidney, constipation, gastroenteritis and small bowel obstruction Lab Data Attestation: I reviewed the patient's lab results. 01/14/25 15:25 Labs: Lab Results 01/14/25 01/14/25 Range/Units 15:25 21:35 Sodium 136 L (137-145) mmol/L Potassium 4.3 (3.4-5.1) mmol/L Chloride 102 (98-107) mmol/L Carbon Dioxide 24 (22-32) mmol/L BUN 7 (7-17) mg/dL Creatinine 0.89 (0.52-1.04) mg/dL Estimated GFR > 60 (>60) mL/min BUN/Creatinine Ratio 7.9 (6-22) Glucose 114 H (70-99) mg/dL Lactate 1.1 (0.7-2.1) mmol/L Calcium 9.3 (8.4-10.2) mg/dL Total Bilirubin 1.1 (0.2-1.3) mg/dL AST 25 (14-36) IU/L ALT 34 (<35) IU/L Alkaline Phosphatase 152 H (38-126) U/L Total Protein 8.5 H (6.3-8.2) g/dL Albumin 4.5 (3.5-5.0) g/dL Globulin 4.0 (1.7-4.1) g/dL Albumin/Globulin Ratio 1.1 (1.0-2.8) Lipase 102 (23-300) U/L Urine RBC 1-5/hpf (0-5/HPF) Urine WBC 0-1/hpf (0-5/HPF) Ur Squamous Epith Cells 0-1 /hpf (0-5/HPF) Urine Bacteria None seen (None) Ur Culture Indicated? Cult not indicated Vol Urine Centrifuged 10ml (spun) Point of care testing: Point of Care Testing Test Results Negative Urine Dip Bedside Urine Glucose Negative Bedside Urine Bilirubin - Negative Bedside Urine Ketone ++ 40 Urine Specific [place] 1.005 Bedside Urine Occult Blood +++ Bedside Urine pH 6.0 Bedside Urine Protein +/- 15 Bedside Urine Urobilinogen - Negative Bedside Urine Nitrite - Negative Bedside Urine Leukocytes - Negative Esterase Imaging Data CT scan - abdomen/pelvis: Radiologist's Impression: IMPRESSION: Status post cholecystectomy with a faint thick rim enhancing organized fluid collection within the gallbladder fossa. Hyperdense material near the region of gallbladder neck/cystic duct likely represents postsurgical suture material versus possible retained stones in the cystic duct. Moderate associated inflammatory changes within the gallbladder fossa which extends to the adjacent segment of colon near the hepatic flexure. Findings may represent a postsurgical seroma versus biloma versus possible early developing abscess. No gas identified within this fluid collection. Interval placement of biliary stent in the common bile duct with persistent but decreased degree of biliary distension. Pneumobilia consistent with recent biliary drain placement. Other chronic/non-acute findings as above. MDM Narrative Medical decision making narrative: 17:45 I discussed the patient's case with Dr. Castelan, general surgery who recommends CT scan over ultrasound at this point. We will proceed with CT abdomen and pelvis with contrast. Patient lab work is essentially unremarkable but she has requested pain medicine for her abdominal pain. 20:50 I discussed the patient's CT scan findings with Dr. Castelan, general surgery who says that this is a problem that needs to be managed by ERCP and/or IR drain placement. We do not have that at this hospital. 21:10 We called [facility] and they have no beds and have no Interventional Radiology available 22:00 I discussed patient's case with MADAI Storey at [facility] who is going to discuss the case with there hospitalists, family dentist and Interventional Radiology. 23:05 I discussed the patient's case with Dr. Andino, hospitalist at [facility] who has discussed the case with Interventional Radiology and Gastroenterology and is willing to accept the patient for postoperative fluid collection that may need intervention by either these specialists. We will arrange transport. Patient has been stable and is receiving maintenance fluids. Discharge Plan Departure Patient Disposition: [facility] Clinical Impression: Intra-abdominal fluid, Post-operative complication Referrals: Provider,Kwame RICHARD [Primary Care Provider, [facility]]
[2025-01-14] MEDS: SODIUM CHLORIDE 0.9% 1,000 ML 1000 ML IV (15:42)
[2025-01-14] MEDS: ONDANSETRON 4 MG/2 ML INJ IV (15:47)
[2025-01-14] MEDS: KETOROLAC 30 MG/ML VIAL IV (15:48)
[2025-01-14 15:49] LABS: Alanine Aminotransferase 34 IU/L (<35); Albumin 4.5 g/dL (3.5-5.0); Albumin Globulin Ratio 1.1 (1.0-2.8); Alkaline Phosphatase 152 U/L (38-126); Blood Urea Nitrogen 7 mg/dL (7-17); Calcium 9.3 mg/dL (8.4-10.2); Carbon Dioxide 24 mmol/L (22-32); Chloride 102 mmol/L (98-107); Estimated Glomerular Filt Rate > 60 mL/min (>60); Globulin 4.0 g/dL (1.7-4.1); Glucose 114 mg/dL (70-99); HEMOLYSIS < 15 (0-50); Lactate (Lactic Acid) 1.1 mmol/L (0.7-2.1); Lipase 102 U/L (23-300); Potassium 4.3 mmol/L (3.4-5.1); Sodium 136 mmol/L (137-145); Total Protein 8.5 g/dL (6.3-8.2)
[2025-01-14] MEDS: MORPHINE 4 MG/ML INJ IV ×2 (17:09→22:49)
--- NOTE | 2025-01-14 17:48 | DI.CT.S_ITS ---
PROCEDURE: CT ABDOMEN PELVIS W CON INDICATIONS: postsurgical abdominal pain and vomiting TECHNIQUE: After the administration of intravenous contrast, axial sections acquired from the lung bases to the pubic symphysis. Coronal and sagittal reformats were performed. For radiation dose reduction, the following was used: automated exposure control, adjustment of mA and/or kV according to patient size. COMPARISON: [facility], CT, CT ABDOMEN PELVIS WITH CONTRAST, 12/29/2024, 4:07. FINDINGS: Image quality: Diagnostic. Lower Chest: No significant findings. ABDOMEN: Liver: No solid mass. Gallbladder: Status post cholecystectomy with a contained/organized fluid collection in the gallbladder fossa measuring 4.6 x 6.8 cm in axial cross-sectional dimension. There is a mildly thickened, faintly enhancing wall. No internal gas. Moderate surrounding stranding which extends to the adjacent loop of distal ascending colon. Interval placement of biliary drain within the common bile duct and terminating within the proximal duodenum. Pneumobilia likely related to stent placement. There are also densities near the distal gallbladder neck and possibly extending to the cystic duct which may represent postsurgical suture material versus possible retained choledocholiths. Biliary ducts: Minimal prominence of the common bile duct with biliary drain in place. Pancreas: No ductal dilation. Spleen: Size is within normal limits. Adrenal Glands: No adrenal nodules. Kidneys and Ureters: No hydronephrosis. No solid mass. No complex renal cystic lesion which requires follow up. Stomach and Bowel: There is mild wall thickening and pericolonic stranding near the hepatic flexure of the distal ascending colon. This may be secondary to adjacent inflammatory changes near the gallbladder. No evidence for small bowel obstruction or associated inflammatory changes. Normal appendix. Peritoneum: No abnormal intraperitoneal fluid. No free air. Ventral Wall: Inflammatory stranding near the umbilicus likely from port site of laparoscopic procedure. Abdominal Nodes: No retroperitoneal or mesenteric adenopathy by size criteria. Vessels: Aorta and inferior vena cava are normal in size. PELVIS: Pelvic Organs: Unremarkable. Bladder: No bladder wall thickening, accounting for underdistention. Pelvic Nodes: No enlarged lymph nodes. Miscellaneous: No inguinal hernias are seen. Bones: No aggressive osseous abnormality. Visualized osseous structures appear intact without acute fracture or focal destructive lesion. No acute compression fractures of the imaged spine. IMPRESSION: Status post cholecystectomy with a faint thick rim enhancing organized fluid collection within the gallbladder fossa. Hyperdense material near the region of gallbladder neck/cystic duct likely represents postsurgical suture material versus possible retained stones in the cystic duct. Moderate associated inflammatory changes within the gallbladder fossa which extends to the adjacent segment of colon near the hepatic flexure. Findings may represent a postsurgical seroma versus biloma versus possible early developing abscess. No gas identified within this fluid collection. Interval placement of biliary stent in the common bile duct with persistent but decreased degree of biliary distension. Pneumobilia consistent with recent biliary drain placement. Other chronic/non-acute findings as above. Findings were discussed with Dr. Skelton at 3 hrs. Dictated by: Antione Sacnhez M.D. on 01/14/2025 at 20:10 Approved by: Antione Sanchez M.D. on 01/14/2025 at 20:39
[2025-01-14 22:27] LABS: Culture Indicated Urine Cult Not Indicated
[2025-01-14] MEDS: SODIUM CHLORIDE 0.9% 1,000 ML 125 ML IV (22:52)
[2025-01-14 23:59] LABS: Add Manual Diff / Slide Review NO; Hematocrit 40.9 % (36-46); Hemoglobin 13.5 g/dL (12.0-16.0); Lymphocytes Absolute Auto 1900 /uL (1100-4500); Mean Corpuscular HGB Conc 33.1 % (30-36); Mean Corpuscular Hemoglobin 29.5 PG (26-34); Mean Corpuscular Volume 89.1 fL (80-100); Platelet Count 372 X10^3/uL (150-400)
[2025-01-15] MEDS: PIPERACILLIN/TAZO 4.5 GM in SODIUM CHLORIDE 0.9% 100 ML IV (00:15)
== END 2025-01-15 00:41 | disposition short-term general hospital (02) ==
PROVIDERS: Emergency Medicine; Emergency Provider Emergency Medicine
DX: K91.89 Other postprocedural complications and disorders of digestive system (principal); R18.8 Other ascites
CPT/HCPCS: 36415; 74177; 80053; 81003; 81015; 81025; 83605; 83690; 85025; 87040; 96374; 96375; 96376; 99284; J1885; J2272; J2405; J2543; J7030; J7050; Q9967